=== PATIENT | male | born 1955 | race Caucasian/White ===

== ENCOUNTER → 2017-03-11 | Outpatient (CLI) | payer OTHER ==
--- NOTE | 2017-03-11 09:32 | REP ---
Chest two views HISTORY: Abnormal lungs Comparison: 03/21/2016 The lungs are hyperinflated. An increase in interstitial markings is present in the lungs. Bullae are present in the upper lobes. Scarring is present in the right upper and mid lung. The heart is normal in size. The pulmonary vasculature is normal in appearance. There is an old compression fracture of a mid thoracic vertebral body. IMPRESSION: COPD. Signed by Juan Maria MD 03/11/2017 09:23 A
== END ==
LOC: M SMT 08:59
PROVIDERS: ATTEND Internal Medicine Pulmonary Disease
DX: J44.9 Chronic obstructive pulmonary disease, unspecified (principal)

== ENCOUNTER → 2019-10-12 | Outpatient (REF) | payer OTHER ==
[2019-10-12 12:08] LABS: HEMATOCRIT 49.2 % (42.0-52.0); HEMOGLOBIN 16.4 g/dl (13.5-17.5); RED BLOOD COUNT 5.15 10^6/uL (4.30-6.10); WHITE BLOOD COUNT 6.8 10^3/uL (4.0-10.0)
[2019-10-12 12:09] LABS: BASO # 0.1 10^3/uL (0.0-0.2); BASO % 0.9 % (0.0-1.0); EOS # 0.2 10^3/uL (0.0-0.5); EOS % 2.6 % (0.0-3.0); LYMPH # 2.1 10^3/uL (1.5-5.0); LYMPH % 30.1 % (24.0-44.0); MEAN CORPUSCULAR HEMOGLOBIN 31.8 pg (27.0-33.0); MEAN CORPUSCULAR HGB CONC 33.3 g/dl (32.0-36.5); MEAN CORPUSCULAR VOLUME 95.5 fl (80.0-96.0); MONO # 0.8 10^3/uL (0.0-0.8); MONO % 11.5 % (0.0-5.0); NEUTROPHILS # 3.7 10^3/uL (1.5-8.5); NEUTROPHILS % 54.3 % (36.0-66.0); PLATELET COUNT, AUTOMATED 287 10^3/uL (150-450)
[2019-10-12 12:45] LABS: ALBUMIN 3.6 GM/DL (3.2-5.2); ALT/SGPT 28 U/L (12-78); BILIRUBIN,TOTAL 0.4 MG/DL (0.2-1.0); BLOOD UREA NITROGEN 10 MG/DL (7-18); CALCIUM LEVEL 9.1 MG/DL (8.8-10.2); CARBON DIOXIDE LEVEL 30 MEQ/L (21-32); CHLORIDE LEVEL 103 MEQ/L (98-107); CHOLESTEROL LEVEL 198 MG/DL (<200); CHOLESTEROL RISK RATIO 6.827 (<5); GLOMERULAR FILTRATION RATE > 60.0 (>49); GLUCOSE, FASTING 91 MG/DL (70-100); HDL CHOLESTEROL 29 MG/DL (>40); LDL CHOLESTEROL 145 MG/DL (<100); NON-HDL-C 169 MG/DL; POTASSIUM SERUM 3.9 MEQ/L (3.5-5.1); PTH INTACT 67.6 PG/ML (18.5-88.0); SODIUM LEVEL 138 MEQ/L (136-145); TOTAL 25(OH) VITAMIN D 21.7 NG/ML (30.0-100.0); TOTAL PROTEIN 7.6 GM/DL (6.4-8.2); TRIGLYCERIDES LEVEL 121 MG/DL (<150)
== END ==
LOC: M SFHCPLAZ 09:37
PROVIDERS: ATTEND Physician Assistant Medical
DX: J44.9 Chronic obstructive pulmonary disease, unspecified (principal); I10 Essential (primary) hypertension; E78.5 Hyperlipidemia, unspecified; E55.9 Vitamin D deficiency, unspecified; Z12.5 Encounter for screening for malignant neoplasm of prostate

== ENCOUNTER → 2019-11-09 | Outpatient (REF) | payer OTHER | LOC: M SFHCPLAZ 14:20 | PROVIDERS: ATTEND Physician Assistant Medical | DX: N41.0 Acute prostatitis (principal) ==

== ENCOUNTER → 2019-11-22 | Outpatient (CLI) | payer OTHER ==
--- NOTE | 2019-11-23 07:16 | REP ---
Clinical: Lung screening. History smoking. Comparison: None Technique: Axial low-dose noncontrast images from the thoracic inlet to the upper abdomen using lung screening technique. Findings: The lung gallardo demonstrate advanced COPD/emphysematous changes with presumed biapical and mild basilar scarring. Calcified granuloma in the right lower lobe is appreciated. There is a 15 mm soft tissue lesion in the right upper lobe (image 39). No pleural effusion/reaction or pneumothorax. Tracheobronchial tree is patent. Mediastinum demonstrates atherosclerotic changes of the coronary arteries without cardiomegaly. Impression: Lung-RADS category 4A. 15 mm soft tissue lesion in the right upper lobe. Recommendations include 3-month follow-up as well as PET/CT evaluation. Electronically Signed by Jesus Alberto Vásquez MD 11/23/2019 07:07 A
== END ==
LOC: M RAD 09:05
PROVIDERS: ATTEND Internal Medicine Pulmonary Disease
DX: Z12.2 Encounter for screening for malignant neoplasm of respiratory organs (principal); F17.218 Nicotine dependence, cigarettes, with other nicotine-induced disorders; R91.8 Other nonspecific abnormal finding of lung field

== ENCOUNTER → 2019-12-13 | Outpatient (CLI) | payer OTHER ==
--- NOTE | 2019-12-13 11:40 | REP ---
PET/CT: HISTORY: Solitary pulmonary nodule. COMPARISONS: Comparison low-dose chest CT November 22, 2019 shows a 12 mm right-sided pulmonary nodule. TECHNIQUE: 60 minutes following the intravenous injection of a 8.14 mCi dose of F-18 FDG, three-dimensional PET scintigraphy is acquired from the skull base to the proximal thighs. Triplanar noncontrast CT scanning is acquired through the same anatomic range for attenuation correction, and image registration with scan parameters optimized to minimize radiation exposure to the patient. PET scintigraphy and CT datasets were fused and displayed on a workstation with multiplanar and projection display capability. PET/CT FINDINGS: The posteriorly situated right upper lobe opacity seen on recent chest CT study shows no discernible FDG accumulation. Maximum standard uptake value is 0.62. No other abnormal hypermetabolic uptake is seen within the lung parenchyma. No abnormal mediastinal or hilar hypermetabolic uptake is appreciated. Head and neck soft tissues are unremarkable. In the abdomen and pelvis, normal adrenal uptake is seen. Normal hepatic and splenic uptake is observed. There is a fairly large area of markedly hypermetabolic uptake in the ascending colon. This is considerably higher than normal gastrointestinal mucosal uptake seen elsewhere on this patient's scan. Maximum standard uptake value in this presumed colonic lesion is 27.85. There is no evidence of regional hypermetabolic carlo uptake. No other abnormal abdominal or pelvic hypermetabolic uptake is seen. IMPRESSION: 1. No abnormal hypermetabolic uptake in the chest. No discernible uptake in the right upper lobe nodule. Recommend interval followup CT study. 2. Incidental note is made of a fairly large area of increased uptake in the ascending colon, much more avid than normal background gastrointestinal mucosal uptake. Rule out colonic neoplasm. Recommend colonoscopy and histologic correlation. Electronically Signed by Isaac Cobian MD 12/13/2019 01:59 P
== END ==
LOC: M PLARAD 08:22
PROVIDERS: ATTEND Internal Medicine Pulmonary Disease
DX: R91.1 Solitary pulmonary nodule (principal); R93.3 Abnormal findings on diagnostic imaging of other parts of digestive tract
CPT/HCPCS: 78815; A9552

== ENCOUNTER → 2020-01-21 | Outpatient (CLI) | payer OTHER ==
[~2020-01-21] MED LIST: ASPI81TA85 PO; ATOR80TA59 PO; FLOM0.4C39 PO; METO25TA4 PO; PROAAER10 INH; QVAR80AE8 INH
== END ==
LOC: M LABSMTC 07:59
PROVIDERS: ATTEND Anesthesiology
DX: Z11.59 Encounter for screening for other viral diseases (principal); Z03.818 Encounter for observation for suspected exposure to other biological agents ruled out
CPT/HCPCS: C9803; U0003

== ENCOUNTER 2020-01-24 09:15 | Day surgery (SDC) | payer OTHER ==
[~2020-01-24] VITALS: Ht 172.7 cm; Wt 94.1 kg
[~2020-01-24 09:15] MED LIST changes: +NS 1,000 ML IV ONE
[2020-01-24] MEDS ORDERED: propofoL 200 MG/20 ML VIAL As Ordered ONE ×2 (09:19→10:43)
[2020-01-24] MEDS ORDERED: LIDOCAINE 2% 100MG/5ML SDV (FOR ANES.) As Ordered ONE (09:39)
--- NOTE | 2020-01-24 11:20 | ROOR ---
Patient Name: Pedro Amezcua Procedure Date: 01/24/2020 10:24 AM Date of : 1955 Age: 64 Room: [facility] Gender: Male Note Status: Finalized Procedure: Colonoscopy Indications: Abnormal PET scan of the GI tract Providers: Gideon Zaragoza MD Referring MD: Bhumi LONG Requesting Provider: Medicines: Monitored Anesthesia Care Complications: No immediate complications. Procedure: Pre-Anesthesia Assessment: - Prior to the procedure, a History and Physical was performed, and patient medications and allergies were reviewed. The patient is competent. The risks and benefits of the procedure and the sedation options and risks were discussed with the patient. All questions were answered and informed consent was obtained. Patient identification and proposed procedure were verified by the physician, the nurse and the anesthesiologist in the procedure room. Mental Status Examination: alert and oriented. Airway Examination: normal oropharyngeal airway and neck mobility. Respiratory Examination: clear to auscultation. CV Examination: normal. Prophylactic Antibiotics: The patient does not require prophylactic antibiotics. Prior Anticoagulants: The patient has taken no previous anticoagulant or antiplatelet agents. ASA Grade Assessment: III - A patient with severe systemic disease. After reviewing the risks and benefits, the patient was deemed in satisfactory condition to undergo the procedure. The anesthesia plan was to use monitored anesthesia care (MAC). Immediately prior to administration of medications, the patient was re-assessed for adequacy to receive sedatives. The heart rate, respiratory rate, oxygen saturations, blood pressure, adequacy of pulmonary ventilation, and response to care were monitored throughout the procedure. The physical status of the patient was re-assessed after the procedure. The Colonoscope was introduced through the anus and advanced to the ascending colon to examine a mass. This was the intended extent. The colonoscopy was performed without difficulty. The patient tolerated the procedure well. The quality of the bowel preparation was good. The rectum was photographed. Scope insertion time was 5 minutes. Scope withdrawal time was 8 minutes. The total duration of the procedure was 16 minutes. Findings: The perianal and digital rectal examinations were normal. A frond-like/villous and infiltrative completely obstructing large mass was found in the ascending colon. The mass was circumferential. This was biopsied with a cold forceps for histology. Verification of patient identification for the specimen was done by the physician and nurse using the patient's name, date and medical record number. Estimated blood loss was minimal. A malignant-appearing, intrinsic severe stenosis was found in the ascending colon and was non-traversed. Non-bleeding external and internal hemorrhoids were found during retroflexion. The hemorrhoids were medium-sized. A large amount of stool was found from rectum to ascending colon, interfering with visualization. Lavage of the area was performed using a large amount of sterile water, resulting in incomplete clearance with fair visualization. Impression: - Likely malignant completely obstructing tumor in the ascending colon. Biopsied. - Stricture in the ascending colon. - Non-bleeding external and internal hemorrhoids. - Stool from rectum to ascending colon. Recommendation: - Patient has a contact number available for emergencies. The signs and symptoms of potential delayed complications were discussed with the patient. Return to normal activities tomorrow. Written discharge instructions were provided to the patient. - Soft diet. - Continue present medications. - Await pathology results. - Refer to a colo-rectal surgeon in 1 week. - Repeat colonoscopy in 6 months because the bowel preparation was poor and per protocol. - Telephone GI clinic for pathology results in 1 week. - Return to primary care physician. Gideon Zaragoza MD Gideon Zaragoza MD 01/24/2020 11:20:06 AM Electronically signed by Gideon Zaragoza MD Number of Addenda: 0 Note Initiated On: 01/24/2020 10:24 AM Estimated Blood Loss: Estimated blood loss was minimal.
[2020-01-24 11:30] VITALS: BP 125/58
== END 2020-01-24 12:46 | disposition home or self-care (01) ==
LOC: M OPP 09:15
PROVIDERS: ATTEND Internal Medicine Gastroenterology
DX: D49.0 Neoplasm of unspecified behavior of digestive system (principal); K56.691 Other complete intestinal obstruction; K56.699 Other intestinal obstruction unspecified as to partial versus complete obstruction; K64.8 Other hemorrhoids; R93.3 Abnormal findings on diagnostic imaging of other parts of digestive tract; F17.210 Nicotine dependence, cigarettes, uncomplicated; Z79.82 Long term (current) use of aspirin; Z79.899 Other long term (current) drug therapy; Z95.5 Presence of coronary angioplasty implant and graft

== ENCOUNTER → 2020-03-29 | Outpatient (CLI) | payer OTHER ==
[~2020-03-29] MED LIST changes: -ASPI81TA85 PO; +ASPI81TA86 PO; +EZET10TA21 PO; -NS 1,000 ML IV ONE; +ONDA8TAB10 PO; +PROC10TA4 PO; +TRIA0.5O EXT
--- NOTE | 2020-04-27 09:25 | REP ---
CT CHEST WITHOUT CONTRAST REASON FOR EXAM: Follow-up. COMPARISON: Low-dose screening CT examination of the lungs 11/22/2019. FINDINGS: No mediastinal or hilar adenopathy has developed. There are no pleural or pericardial effusions. Imaged upper abdomen and imaged osseous structures are within normal limits. Evaluation of the lung gallardo shows an unchanged 1.5 cm size nodule in the right upper lobe. There is biapical pleural parenchymal scarring status quo. There are emphysematous changes seen particularly in the upper lobe regions with parenchymal bullae and pleural blebs all stable. No new abnormal nodules, masses, or opacities have developed. IMPRESSION: Stable CT findings as described above. On 12/13/2019, the patient had CT PET, which showed no abnormal hypermetabolic activity in the chest. MTDD
== END ==
LOC: M RAD 12:15
PROVIDERS: ATTEND Internal Medicine Pulmonary Disease
DX: R91.1 Solitary pulmonary nodule (principal); J43.9 Emphysema, unspecified; J98.4 Other disorders of lung

== ENCOUNTER → 2020-04-26 | Outpatient (CLI) | payer OTHER ==
[~2020-04-26] MED LIST changes: +LIDOCAINE 1% MDV 20ML VIAL As Ordered ONE; +MIDAZOLAM INJ 2MG/2ML VIAL (J2250 PER 1MG) As Ordered ONE; +ONDANSETRON 4MG/2ML VIAL As Ordered ONE; +ONDANSETRON 4MG/2ML VIAL IV ONE; +ceFAZolin 1GM VIAL (J0690 PER 500MG) As Ordered ONE; +diphenhydrAMINE 50MG/ML VIAL (J1200) As Ordered ONE; +fentaNYL 100 MCG/2 ML INJECTION (J3010) As Ordered ONE
--- NOTE | 2020-04-26 09:46 | IRHP ---
[facility] IR Pre-Procedure H & P General Date of Service: Apr 26, 2020 Procedure: Same Day Surgery Interval History and Physical I have seen the patient and reviewed last H & P performed within 30 days. There is no significant interval change. History of Present Illness Chief Complaint The patient is a 64-year-old male admitted with a reason for visit of Colon Ca. PRE-PROCEDURE DIAGNOSIS:colon ca HEART: normal rate. LUNGS: normal breathing at rest. ASA Classification ASA Classification: III-Severe systemic dis. Mallampati Score: II NPO: Yes Problems with prior sedation: No Obstructive Sleep Apnea: No Plan moderate sedation Allergies Coded Allergies: No Known Allergies (Verified , 01/18/20) Home Medications Scheduled Aspirin (Aspir 81), 81 MG PO DAILY, (Reported) Atorvastatin Calcium (Atorvastatin Calcium), 80 MG PO QHS, (Reported) Beclomethasone Dipropionate (Qvar Redihaler), 80 MCG INH BID, (Reported) Ezetimibe (Ezetimibe), 10 MG PO DAILY, (Reported) Metoprolol Tartrate (Metoprolol Tartrate), 25 MG PO BID, (Reported) Tamsulosin HCl (Flomax), 0.4 MG PO DAILY, (Reported) Scheduled PRN Albuterol Sulfate (Proair Hfa), 2 PUFF INH PRN PRN for SOB/WHEEZING, (Reported) LYNN BRYAN MD Apr 26, 2020 09:46
--- NOTE | 2020-04-26 14:18 | POST-OPPD ---
Postoperative Procedure Note Date Of Procedure: Apr 26, 2020 Time Of Procedure: 14:17 IR Ultrasound and fluoroscopy-guided port placement. IR Ultrasound of the neck. IR Moderate sedation. Clinical information: Lymphoma Physician: Dr. Cash. Procedure: The patient was advised of the benefits, risks, and alternatives of the procedure and informed consent was obtained. A time-out was performed with verification of the patient's name, MRN, site of procedure and type of procedure to be performed. The patient was positioned in the supine position on the angiographic table. The site was prepped and draped in the usual sterile fashion. Moderate sedation was performed by the physician including the presence of an independent trained observer who assisted and monitored the patient's level of consciousness and physiologic status. Following the administration of fentanyl and Versed , the physician spent 45 minutes of continuous face to face time with the patient. Ultrasound of the neck reveals a patent and compressible right internal jugular vein. A unix analyst radiograph reveals scarring in the right lung apex. The neck and anterior chest wall were anesthetized with lidocaine. The right internal jugular vein was accessed using a microintroducer needle under ultrasound guidance, via a lateral approach. An 018 wire was advanced into the superior vena cava, the needle was removed and a microsheath was placed. An Amplatz wire was then passed into the inferior vena cava. An incision at the internal jugular vein access site and anterior chest wall were made using a scalpel. An incision was made at the anterior chest wall. A small pocket was created using a combination of blunt and sharp dissection. A tunneling device was then used to pass the catheter from the pocket to the neck puncture site. An 8- [employer] Smart power port was then positioned in the pocket. The catheter was then measured and cut. The introducer sheath was exchanged for a peel-away sheath. The catheter was passed through the peel-away sheath into the internal jugular vein and the peel-away sheath was removed. The port tip was positioned at the cavoatrial junction. The port was then accessed with a Carey needle. The port flushes and aspirates well. The puncture site in the neck was closed. The chest wall incision was then closed with 2-0 Vicryl and 4-0 Monocryl. Glue and Steri- Strips were applied. A sterile dressing was then applied. The patient tolerated the procedure well and was returned to the PRU in stable condition. Estimated blood loss: <5 ml. Complications: None. Conclusion: 1. Successful placement of an 8-[employer] Smart power port via the right internal jugular vein. The port is ready for immediate use. 2. Patient to follow up in IR clinic in 2 weeks. Thank you for this referral. LYNN CASH MD Apr 26, 2020 14:18
[2020-04-26 14:45] VITALS: BP 132/80
== END ==
LOC: M IRPRO 09:12
PROVIDERS: ATTEND Radiology Diagnostic Radiology
DX: C18.9 Malignant neoplasm of colon, unspecified (principal); Z79.82 Long term (current) use of aspirin; Z79.899 Other long term (current) drug therapy
CPT/HCPCS: 36561; 99152; 99153; C1769; C1788; C1894; J0690; J1200; J1642; J1644; J2250; J2405; J3010

== ENCOUNTER → 2020-05-30 | Outpatient (REF) | payer OTHER ==
[~2020-05-30] MED LIST changes: -LIDOCAINE 1% MDV 20ML VIAL As Ordered ONE; -MIDAZOLAM INJ 2MG/2ML VIAL (J2250 PER 1MG) As Ordered ONE; -ONDANSETRON 4MG/2ML VIAL As Ordered ONE; -ONDANSETRON 4MG/2ML VIAL IV ONE; -ceFAZolin 1GM VIAL (J0690 PER 500MG) As Ordered ONE; -diphenhydrAMINE 50MG/ML VIAL (J1200) As Ordered ONE; -fentaNYL 100 MCG/2 ML INJECTION (J3010) As Ordered ONE
[2020-05-30 18:17] LABS: ALBUMIN 3.5 GM/DL (3.2-5.2); ALT/SGPT 37 U/L (12-78); BILIRUBIN,TOTAL 0.3 MG/DL (0.2-1.0); BLOOD UREA NITROGEN 8 MG/DL (7-18); CALCIUM LEVEL 9.2 MG/DL (8.8-10.2); CARBON DIOXIDE LEVEL 32 MEQ/L (21-32); CHLORIDE LEVEL 104 MEQ/L (98-107); CREATININE FOR GFR 1.04 MG/DL (0.70-1.30); GLOMERULAR FILTRATION RATE > 60.0 (>49); GLUCOSE, FASTING 104 MG/DL (70-100); NT-PRO BNP 43 PG/ML (<125); POTASSIUM SERUM 4.2 MEQ/L (3.5-5.1); SODIUM LEVEL 140 MEQ/L (136-145); TOTAL PROTEIN 7.3 GM/DL (6.4-8.2)
[2020-05-30 18:25] LABS: PTH INTACT 61.6 PG/ML (18.5-88.0); TOTAL 25(OH) VITAMIN D 18.7 NG/ML (30.0-100.0)
== END ==
LOC: M SFHCPLAZ 15:15
PROVIDERS: ATTEND Physician Assistant Medical
DX: Z12.5 Encounter for screening for malignant neoplasm of prostate (principal); E55.9 Vitamin D deficiency, unspecified; I25.10 Atherosclerotic heart disease of native coronary artery without angina pectoris

== ENCOUNTER → 2020-10-02 | Outpatient (CLI) | payer OTHER ==
[~2020-10-02] MED LIST changes: +ASPI1CHW3 PO
--- NOTE | 2020-10-02 10:38 | REP ---
INDICATION: SOLITARY PULMONARY NODULE COMPARISON: 03/29/2020, 11/22/2019 TECHNIQUE: Axial noncontrast images from the thoracic inlet to the upper abdomen with coronal and sagittal reformations. This CT examination was performed using the following dose reduction techniques: Automated exposure control, adjustment of mA and/or kv according to the patient's size, and use of iterative reconstruction technique. FINDINGS: Advanced emphysematous changes with scattered bronchiectasis and scarring are again noted and essentially unchanged. The single 15 mm noncalcified nodule in the right upper lobe remains stable. No new area of consolidation, suspicious nodule or mass lesion. No pleural effusion. No pneumothorax. No obvious adenopathy. Mediastinum demonstrates stable atherosclerotic changes to the thoracic aorta and coronary arteries without aortic aneurysm or cardiomegaly. No pericardial effusion. Surrounding musculoskeletal structures without acute osseous abnormality. [id number]-[id number]-[id number] identified with tip in the SVC. IMPRESSION: Solitary pulmonary nodule in the right upper lobe remains stable compared through 11/22/2019 and was previously deemed non metabolic on PET-CT. <Electronically signed by Jesus Alberto Vásquez > 10/02/20 [id number]
== END ==
LOC: M RAD 09:26
PROVIDERS: ATTEND Internal Medicine Pulmonary Disease
DX: R91.1 Solitary pulmonary nodule (principal)

== ENCOUNTER → 2020-11-20 | Outpatient (POV) | payer OTHER ==
[~2020-11-20] VITALS: Ht 172.7 cm; Wt 93.2 kg
[2020-11-20 10:32] VITALS: BP 129/84
--- NOTE | 2020-11-23 08:45 | IRCOV ---
[facility] IR Consult Office Visit IR Consult Office Visit DATE: Nov 20, 2020 REASON FOR CONSULTATION/CHIEF COMPLAINT: Port removal. HISTORY OF PRESENT ILLNESS: 65-year-old male with colon cancer diagnosed in January 2020 underwent Laparoscopic right hemicolectomy with ileocolonic anastomosis in March 2020 followed by FOLFOX chemotherapy started in April 2020. He had a chest port placed for chemotherapy in April. Port worked well. Patient decided to discontinue chemotherapy after 1 cycle due to significant side effects. Patient would like his port removed and wants to forego any further therapy. ALLERGIES: Please see below. HOME MEDICATIONS: Please see below. PAST MEDICAL HISTORY: COPD Coronary artery disease 4 x [place] 5 cardiac stents Hypertension PAST SURGICAL HISTORY: Right hemicolectomy with ileocolonic anastomosis FAMILY HISTORY: Noncontributory. SOCIAL HISTORY: Smoker since age 21. 1.5 packs per day. Denies alcohol or drugs. REVIEW OF SYSTEMS: Otherwise negative. PHYSICAL EXAMINATION: VITAL SIGNS: Please see below. GENERAL APPEARANCE: Appears well. Comfortable at rest. HEENT: No scleral icterus. RESPIRATORY: Normal breathing at rest. CARDIOVASCULAR: Normal rate. ABDOMEN: Soft nontender. EXTREMITIES: No edema. NEUROLOGICAL: Alert and oriented. PSYCHIATRIC: Appropriate to circumstance. LABORATORY DATA: 11/16/2020 hemoglobin 17.5 hematocrit 51.9 WBC 6.6 platelets 242. Sodium 139 potassium 3.7 BUN 11 creatinine 0.94 GFR greater than 60. INR 0.85 Imaging: I personally reviewed the CT chest 10/02/20. Right-sided chest port in place. ASSESSMENT/PLAN: 65-year-old male has decided to forego any further chemotherapy due to intolerable side effects. Patient would like his port removed. We discuss ed the risks and benefits of the procedure and patient would like to proceed. We'll schedule the patient for chest port removal. I spent 30 minutes in consultation with the patient. Thank you for this referral. Cc Dr. Jane Chaves Allergies Coded Allergies: No Known Allergies (Verified , 01/18/20) Home Medications Scheduled Aspirin (Aspirin), 1 TAB PO DAILY, (Reported) Atorvastatin Calcium (Atorvastatin Calcium), 80 MG PO QHS, (Reported) Ezetimibe (Ezetimibe), 10 MG PO DAILY, (Reported) Metoprolol Tartrate (Metoprolol Tartrate), 25 MG PO BID, (Reported) Tamsulosin HCl (Flomax), 0.4 MG PO DAILY, (Reported) Triamcinolone Acetonide (Triamcinolone Acetonide), 0.5 SMALL EXT BID Scheduled PRN Albuterol Sulfate (Proair Hfa), 2 PUFF INH PRN PRN for SOB/WHEEZING, (Reported) Ondansetron HCl (Ondansetron HCl), 8 MG PO Q12H PRN for NAUSEA Prochlorperazine Maleate (Prochlorperazine Maleate), 10 MG PO Q6H PRN for NAUSEA VS, I&O, 24H, Fishbone Vital Signs/I&O Vital Signs Date Time Temp Pulse Resp B/P (MAP) Pulse Ox O2 Delivery O2 Flow Rate FiO2 11/20/20 10:32 97.3 86 20 129/84 (99) 97 Room Air LYNN BRYAN MD Nov 23, 2020 08:45
== END ==
LOC: M IRPOV 09:56
PROVIDERS: ATTEND Radiology Diagnostic Radiology
DX: C18.9 Malignant neoplasm of colon, unspecified (principal); F17.210 Nicotine dependence, cigarettes, uncomplicated; I10 Essential (primary) hypertension; I25.10 Atherosclerotic heart disease of native coronary artery without angina pectoris; I25.2 Old myocardial infarction; J44.9 Chronic obstructive pulmonary disease, unspecified; Z92.21 Personal history of antineoplastic chemotherapy; Z95.1 Presence of aortocoronary bypass graft

== ENCOUNTER → 2020-11-28 | Outpatient (CLI) | payer OTHER ==
[~2020-11-28] MED LIST changes: +LIDOCAINE 1% MDV 20ML VIAL As Ordered ONE; +MIDAZOLAM INJ 2MG/2ML VIAL (J2250 PER 1MG) As Ordered ONE; +PROMETHAZINE INJ 25 MG/ML VIAL (J2550) As Ordered ONE; +ceFAZolin 2 GM/D5W 50 ML IV BAG (J0690 PER 500MG) As Ordered ONE; +diphenhydrAMINE 50MG/ML VIAL (J1200) As Ordered ONE; +fentaNYL 100 MCG/2 ML INJECTION (J3010) As Ordered ONE
[2020-11-28 13:00] VITALS: BP 134/63
--- NOTE | 2020-11-29 11:46 | IRPON ---
IR Postoperative Note Date Of Procedure: Nov 28, 2020 Time Of Procedure: 16:00 IR Postoperative Note IR Port Removal / Explant. IR Moderate sedation. Clinical Information:Colon cancer. No further therapy planned. Patient would like port removed. Physician: Dr. Cash Procedure: The patient was advised of the benefits, risks, and alternatives of the procedure and informed consent was obtained. A time out was performed with verification of the patient's name, MRN, site of procedure, and type of procedure to be performed. The patient was positioned in the supine position on the angiographic table. The site was prepped and draped in the usual sterile fashion. Moderate sedation was performed by the physician including the presence of an independent trained RN who assisted in monitoring the patient's level of consciousness and physiological status. Following the administration of fentanyl and Versed the physician spent 30 minutes of continuous osmj-sp-[id number] time with the patient. A satellite installer radiograph reveals a right sided port. The soft tissues overlying the port were anesthetized with lidocaine. An incision was made over the port using a 15 blade scalpel in the location of the prior incision. The catheter was then freed with blunt dissection and extracted. Pressure was applied to obtain hemostasis. The port was then freed with blunt dissection and subsequently removed. There were no signs of infection. After hemostasis was achieved, the incision was closed with interrupted deep 3-0 Vicryl sutures and subcuticular Monocryl suture followed by glue and steri-strips. The site was covered with a sterile dressing. The patient tolerated the procedure well and was returned to the PRU in stable condition. EBL:Less than 5 mL Complications:None. Conclusions: 1. Successful explant of a right-sided port. 2. No signs of infection. Thank you for this referral LYNN CASH MD Nov 29, 2020 11:46
== END ==
LOC: M IRPRO 08:50
PROVIDERS: ATTEND Radiology Diagnostic Radiology
DX: Z45.2 Encounter for adjustment and management of vascular access device (principal); C18.9 Malignant neoplasm of colon, unspecified

== ENCOUNTER → 2020-12-07 | Outpatient (CLI) | payer OTHER ==
[~2020-12-07] MED LIST changes: +GASTROGRAFIN SOLUTION 30ML (Q9963) As Ordered ONE; +ISOVUE-370 76% 100ML VIAL As Ordered ONE; -LIDOCAINE 1% MDV 20ML VIAL As Ordered ONE; -MIDAZOLAM INJ 2MG/2ML VIAL (J2250 PER 1MG) As Ordered ONE; -PROMETHAZINE INJ 25 MG/ML VIAL (J2550) As Ordered ONE; -ceFAZolin 2 GM/D5W 50 ML IV BAG (J0690 PER 500MG) As Ordered ONE; -diphenhydrAMINE 50MG/ML VIAL (J1200) As Ordered ONE; -fentaNYL 100 MCG/2 ML INJECTION (J3010) As Ordered ONE
--- NOTE | 2020-12-07 13:04 | REP ---
INDICATION: COLON CANCER. COMPARISON: None TECHNIQUE: Standard helical technique after the intravenous administration of 100 cc Isovue 370 and oral bowel preparatory contrast administration FINDINGS: The lung bases are unchanged from prior chest CT of 10/02/2020 The liver, gallbladder, spleen, pancreas, adrenal glands, and kidneys are within normal limits. The abdominal aorta and para-aortic regions are within normal limits. There is no mass or adenopathy. There is no free fluid or free air. The bowel loops and the mesenteries are within normal limits. There is sigmoid colon diverticulosis. Right lower quadrant postoperative changes are noted. There is prostatomegaly. There is a 5 mm sized nodule in the left para vesicular adipose. Bone window technique throughout the examination shows the osseous structures to be within normal limits. IMPRESSION: There is no evidence of acute disease. Findings as described above. <Electronically signed by Kyle Law > 12/07/20 1300
== END ==
LOC: M RAD 10:47
PROVIDERS: ATTEND Internal Medicine Medical Oncology
DX: C18.9 Malignant neoplasm of colon, unspecified (principal); N40.0 Benign prostatic hyperplasia without lower urinary tract symptoms
CPT/HCPCS: 74177; Q9963; Q9967

== ENCOUNTER → 2020-12-18 | Outpatient (POV) | payer OTHER ==
[~2020-12-18] VITALS: Ht 172.7 cm; Wt 93.1 kg
[~2020-12-18] MED LIST changes: -GASTROGRAFIN SOLUTION 30ML (Q9963) As Ordered ONE; -ISOVUE-370 76% 100ML VIAL As Ordered ONE
[2020-12-18 09:56] VITALS: BP 140/70
--- NOTE | 2020-12-19 10:49 | IRPN ---
[facility] IR Progress Note IR Progress Note DATE: December 18, 2020 FOLLOW-UP: Patient is status post port removal. Patient states he is doing well without fevers or chills or pain. ON EXAMINATION: Port removal site appears to be healing well. Steri-Strips are still in place. No redness, swelling or discharge IMPRESSION: Doing well status post port removal. No further follow-up scheduled unless initiated by patient and/or referring provider. Thank you for this referral Allergies Coded Allergies: No Known Allergies (Verified , 01/18/20) VS,Fishbone, I+O VS, Fishbone, I+O Vital Signs Date Time Temp Pulse Resp B/P (MAP) Pulse Ox O2 Delivery O2 Flow Rate FiO2 12/18/20 09:56 98.4 87 24 140/70 (93) 96 Room Air LYNN BRYAN MD December 19, 2020 10:49
== END ==
LOC: M IRPOV 09:03
PROVIDERS: ATTEND Radiology Diagnostic Radiology
DX: Z45.2 Encounter for adjustment and management of vascular access device (principal)

== ENCOUNTER → 2021-01-29 | Outpatient (CLI) | payer OTHER ==
[2021-01-29 14:14] LABS: ALBUMIN 3.8 GM/DL (3.2-5.2); ALT/SGPT 41 U/L (12-78); BILIRUBIN,TOTAL 0.5 MG/DL (0.2-1.0); BLOOD UREA NITROGEN 13 MG/DL (7-18); CALCIUM LEVEL 9.2 MG/DL (8.8-10.2); CARBON DIOXIDE LEVEL 33 MEQ/L (21-32); CHLORIDE LEVEL 104 MEQ/L (98-107); CREATININE FOR GFR 0.93 MG/DL (0.70-1.30); GLOMERULAR FILTRATION RATE > 60.0 (>49); GLUCOSE, FASTING 99 MG/DL (70-100); NT-PRO BNP 31 PG/ML (<125); POTASSIUM SERUM 4.4 MEQ/L (3.5-5.1); SODIUM LEVEL 138 MEQ/L (136-145); TOTAL 25(OH) VITAMIN D 10.9 NG/ML (30.0-100.0); TOTAL PROTEIN 7.4 GM/DL (6.4-8.2)
== END ==
LOC: M PLALAB 10:48
PROVIDERS: ATTEND Physician Assistant Medical
DX: N41.0 Acute prostatitis (principal); I25.5 Ischemic cardiomyopathy; E55.9 Vitamin D deficiency, unspecified; I25.10 Atherosclerotic heart disease of native coronary artery without angina pectoris

== ENCOUNTER → 2021-03-21 | Outpatient (CLI) | payer MEDICARE, OTHER ==
[~2021-03-21] MED LIST changes: +CHLO125TA; +FURO40TA2; +METO1TAB32; +NITR0.4S14; +POTA1TAB14
[2021-03-21 12:18] LABS: CHOLESTEROL RISK RATIO 5.312 (<5)
== END ==
LOC: M PLALAB 08:44
PROVIDERS: ATTEND Physician Assistant Medical
DX: E78.5 Hyperlipidemia, unspecified (principal)

== ENCOUNTER → 2021-04-04 | Outpatient (CLI) | payer MEDICARE, OTHER ==
[~2021-04-04] MED LIST changes: -CHLO125TA; +CHLO125TA PO; +D31000TA2 PO; -METO1TAB32; +METO1TAB32 PO; +VENTAER INH
[2021-04-04 13:54] LABS: CALCIUM LEVEL 9.4 MG/DL (8.8-10.2)
[2021-04-04 14:06] LABS: PTH INTACT 101.4 PG/ML (18.5-88.0)
== END ==
LOC: M PLALAB 11:20
PROVIDERS: ATTEND Physician Assistant Medical
DX: E55.9 Vitamin D deficiency, unspecified (principal)
CPT/HCPCS: 36415; 82306; 82310; 83970; G0463

== ENCOUNTER → 2021-04-27 | Outpatient (CLI) | payer OTHER | LOC: M LABSMTC 09:18 | PROVIDERS: ATTEND Anesthesiology | DX: Z01.812 Encounter for preprocedural laboratory examination (principal); Z20.822 Contact with and (suspected) exposure to COVID-19 ==

== ENCOUNTER 2021-05-02 07:40 | Day surgery (SDC) | payer MEDICARE, OTHER ==
[~2021-05-02] VITALS: Ht 172.7 cm; Wt 93.6 kg
[~2021-05-02 07:40] MED LIST changes: +NS 1,000 ML IV ONE
[2021-05-02] MEDS ORDERED: propofoL 200 MG/20 ML VIAL As Ordered ONE (09:38)
--- NOTE | 2021-05-02 09:52 | ROOR ---
Patient Name: Pedro Amezcua Procedure Date: 05/02/2021 9:09 AM Date of : 1955 Age: 65 [facility]: [facility] Gender: Male Note Status: Finalized Procedure: Colonoscopy Indications: High risk colon cancer surveillance: Personal history of colon cancer Providers: Gideon Zaragoza MD Referring MD: Bhumi LONG Requesting Provider: Medicines: Monitored Anesthesia Care Complications: No immediate complications. Procedure: Pre-Anesthesia Assessment: - Prior to the procedure, a History and Physical was performed, and patient medications and allergies were reviewed. The patient is competent. The risks and benefits of the procedure and the sedation options and risks were discussed with the patient. All questions were answered and informed consent was obtained. Patient identification and proposed procedure were verified by the physician, the nurse and the anesthesiologist in the procedure room. Mental Status Examination: alert and oriented. Airway Examination: normal oropharyngeal airway and neck mobility. Respiratory Examination: clear to auscultation. CV Examination: normal. Prophylactic Antibiotics: The patient does not require prophylactic antibiotics. Prior Anticoagulants: The patient has taken no previous anticoagulant or antiplatelet agents. ASA Grade Assessment: II - A patient with mild systemic disease. After reviewing the risks and benefits, the patient was deemed in satisfactory condition to undergo the procedure. The anesthesia plan was to use monitored anesthesia care (MAC). Immediately prior to administration of medications, the patient was re-assessed for adequacy to receive sedatives. The heart rate, respiratory rate, oxygen saturations, blood pressure, adequacy of pulmonary ventilation, and response to care were monitored throughout the procedure. The physical status of the patient was re-assessed after the procedure. The Colonoscope was introduced through the anus and advanced to the ileocolonic anastomosis. The colonoscopy was performed without difficulty. The patient tolerated the procedure well. The quality of the bowel preparation was fair. The terminal ileum, the appendiceal orifice and the rectum were photographed. Scope insertion time was 2 minutes. Scope withdrawal time was 9 minutes. The total duration of the procedure was 12 minutes. Findings: The perianal and digital rectal examinations were normal. The senait-terminal ileum appeared normal. Four sessile polyps were found in the rectum and ascending colon. The polyps were 3 to 5 mm in size. These polyps were removed with a cold snare. Resection and retrieval were complete. Verification of patient identification for the specimen was done by the physician and nurse using the patient's name, date and medical record number. Estimated blood loss was minimal. Non-bleeding external and internal hemorrhoids were found during retroflexion. The hemorrhoids were medium-sized. A large amount of semi-liquid stool was found from transverse colon to cecum, interfering with visualization. Lavage of the area was performed using a large amount of sterile water, resulting in clearance with fair visualization. Impression: - Preparation of the colon was fair. - The examined portion of the ileum was normal. - Four 3 to 5 mm polyps in the rectum and in the ascending colon, removed with a cold snare. Resected and retrieved. - Non-bleeding external and internal hemorrhoids. - Stool from transverse colon to cecum. Recommendation: - Patient has a contact number available for emergencies. The signs and symptoms of potential delayed complications were discussed with the patient. Return to normal activities tomorrow. Written discharge instructions were provided to the patient. - High fiber diet. - Continue present medications. - Use fiber, for example Citrucel, Fibercon, Konsyl or Metamucil. - Await pathology results. - Repeat colonoscopy in 1 year because the bowel preparation was suboptimal and for surveillance based on pathology results. - Telephone GI clinic for pathology results in 2 weeks. - Return to GI clinic in 1 year. - Return to primary care physician. Procedure Code(s): --- Professional --- 16778, Colonoscopy, flexible; with removal of tumor(s), polyp(s), or other lesion(s) by snare technique Diagnosis Code(s): --- Professional --- Z85.038, Personal history of other malignant neoplasm of large intestine K64.8, Other hemorrhoids K62.1, Rectal polyp K63.5, Polyp of colon CPT copyright 2019 [employer]. All rights reserved. The codes documented in this report are preliminary and upon beet topper review may be revised to meet current compliance requirements. Gideon Zaragoza MD Gideon Zaragoza MD 05/02/2021 9:51:56 AM Electronically signed by Gideon Zaragoza MD Number of Addenda: 0 Note Initiated On: 05/02/2021 9:09 AM Estimated Blood Loss: Estimated blood loss was minimal.
[2021-05-02 10:05] VITALS: BP 131/70
== END 2021-05-02 10:18 | disposition home or self-care (01) ==
LOC: M OPP 07:40
PROVIDERS: ATTEND Internal Medicine Gastroenterology
DX: Z12.11 Encounter for screening for malignant neoplasm of colon (principal); Z85.038 Personal history of other malignant neoplasm of large intestine; K63.5 Polyp of colon; K62.1 Rectal polyp; K64.8 Other hemorrhoids; Z79.82 Long term (current) use of aspirin; Z79.899 Other long term (current) drug therapy; F17.210 Nicotine dependence, cigarettes, uncomplicated; Z95.5 Presence of coronary angioplasty implant and graft

== ENCOUNTER → 2021-05-08 | Outpatient (CLI) | payer MEDICARE, OTHER ==
[~2021-05-08] MED LIST changes: -NS 1,000 ML IV ONE
--- NOTE | 2021-05-08 10:52 | REP ---
INDICATION: SOLITARY PULMONARY NODULE COMPARISON: Multiple the latest 10/02/2020 also without contrast TECHNIQUE: Standard helical technique without contrast FINDINGS: The mediastinum and pulmonary esther are unchanged. There is no evidence of a mass or adenopathy. There are no pleural or pericardial effusions. The imaged upper abdomen and imaged osseous structures are unchanged. Evaluation of the lung gallardo shows rather marked biapical pleuroparenchymal scarring status quo. There is rather marked lung field hyperexpansion in conjunction with parenchymal bulla and pleural blebs. There is a 1.5 cm sized right upper lobe nodule which is unchanged. No new abnormal nodules, masses, or opacities have developed. IMPRESSION: Stable CT examination of the chest with findings as described above. Due to the patient's history of colon cancer follow-up should be based on clinical assessment. <Electronically signed by Kyle Law > 05/08/21 1041
== END ==
LOC: M PLAIMG 09:39
PROVIDERS: ATTEND Internal Medicine Pulmonary Disease
DX: R91.1 Solitary pulmonary nodule (principal); Z80.0 Family history of malignant neoplasm of digestive organs

== ENCOUNTER → 2021-11-20 | Outpatient (CLI) | payer MEDICARE, OTHER ==
[~2021-11-20] MED LIST changes: +ASMA1AER3 INH; +AZIT-12 PO; +BENZ-18 PO; -D31000TA2 PO; +MUCI600T31 PO; +NICO14PA TD; +ONDA-84 PO; -ONDA8TAB10 PO; +PANT40TA29 PO; +PRED10TA2 PO; -PROC10TA4 PO; +PROC10TA5 PO; +PULM90IN INH; +VITA100093 PO
== END ==
LOC: M RAD 09:05
PROVIDERS: ATTEND Internal Medicine Pulmonary Disease
DX: J93.9 Pneumothorax, unspecified (principal); J43.1 Panlobular emphysema; R91.1 Solitary pulmonary nodule

== ENCOUNTER → 2022-11-12 | Outpatient (CLI) | payer MEDICARE, OTHER ==
[~2022-11-12] MED LIST changes: -ASMA1AER3 INH; +ASPI-655 PO; -ASPI1CHW3 PO; +MOME13HF5 INH
== END ==
LOC: M RAD 06:14
PROVIDERS: ATTEND Internal Medicine Pulmonary Disease
DX: Z12.2 Encounter for screening for malignant neoplasm of respiratory organs (principal); F17.218 Nicotine dependence, cigarettes, with other nicotine-induced disorders; R91.1 Solitary pulmonary nodule; J84.10 Pulmonary fibrosis, unspecified

== ENCOUNTER → 2023-02-10 | Outpatient (CLI) | payer MEDICARE, OTHER ==
[~2023-02-10] MED LIST changes: +POTA-298; -POTA1TAB14
[2023-02-10 14:29] LABS: BASO # 0.1 10^3/uL (0.0-0.2); BASO % 0.7 % (0.0-1.0); EOS # 0.1 10^3/uL (0.0-0.5); EOS % 0.7 % (0.0-3.0); HEMATOCRIT 51.8 % (42.0-52.0); HEMOGLOBIN 17.1 g/dl (13.5-17.5); LYMPH # 1.9 10^3/uL (1.5-5.0); LYMPH % 26.9 % (24.0-44.0); MEAN CORPUSCULAR HEMOGLOBIN 32.1 pg (27.0-33.0); MEAN CORPUSCULAR VOLUME 97.2 fl (80.0-96.0); MONO # 0.7 10^3/uL (0.0-0.8); MONO % 9.7 % (2.0-8.0); NEUTROPHILS # 4.3 10^3/uL (1.5-8.5); NEUTROPHILS % 61.2 % (36.0-66.0); PLATELET COUNT, AUTOMATED 223 10^3/uL (150-450); RED BLOOD COUNT 5.33 10^6/uL (4.30-6.10); WHITE BLOOD COUNT 7.1 10^3/uL (4.0-10.0)
[2023-02-10 14:47] LABS: ALBUMIN 3.8 G/DL (3.2-5.2); ALKALINE PHOSPHATASE 109 U/L (46-116); ALT/SGPT 24 U/L (7.0-40); AST/SGOT 20 U/L (<34); BILIRUBIN,TOTAL 0.6 MG/DL (0.3-1.2); BLOOD UREA NITROGEN 10 MG/DL (9-23); CALCIUM LEVEL 10.4 MG/DL (8.3-10.6); CARBON DIOXIDE LEVEL 34 MMOL/L (20-31); CHLORIDE LEVEL 98 MMOL/L (98-107); CPK CREATINE PHOSPHOKINASE 399 U/L (46-171); CREATININE FOR GFR 0.76 MG/DL (0.70-1.30); GLOMERULAR FILTRATION RATE > 60.0 (>49); GLUCOSE, FASTING 83 MG/DL (74-106); POTASSIUM SERUM 3.5 MMOL/L (3.5-5.1); PTH INTACT 35.8 PG/ML (18.5-88.0); SODIUM LEVEL 135 MMOL/L (136-145); TOTAL PROTEIN 6.9 G/DL (5.7-8.2)
[2023-02-10 14:49] LABS: TOTAL 25(OH) VITAMIN D 39.5 NG/ML (20.0-100.0)
== END ==
LOC: M PLAIMG 09:17 → M PLALAB 09:17
PROVIDERS: ATTEND Physician Assistant Medical
DX: M50.321 Other cervical disc degeneration at C4-C5 level (principal); M50.322 Other cervical disc degeneration at C5-C6 level; J44.1 Chronic obstructive pulmonary disease with (acute) exacerbation; G62.9 Polyneuropathy, unspecified; I11.0 Hypertensive heart disease with heart failure; K21.9 Gastro-esophageal reflux disease without esophagitis; E78.5 Hyperlipidemia, unspecified; E55.9 Vitamin D deficiency, unspecified; N40.0 Benign prostatic hyperplasia without lower urinary tract symptoms; I50.32 Chronic diastolic (congestive) heart failure
CPT/HCPCS: 36415; 71046; 72052; 80053; 82306; 82550; 83880; 83970; 85025; G0103

== ENCOUNTER → 2023-03-30 | Outpatient (CLI) | payer MEDICARE, OTHER | LOC: M PLAIMG 08:11 | PROVIDERS: ATTEND Physician Assistant Medical | DX: G62.9 Polyneuropathy, unspecified (principal); M50.21 Other cervical disc displacement, high cervical region; M50.221 Other cervical disc displacement at C4-C5 level; M47.812 Spondylosis without myelopathy or radiculopathy, cervical region; M50.222 Other cervical disc displacement at C5-C6 level; M50.223 Other cervical disc displacement at C6-C7 level ==

== ENCOUNTER → 2023-12-15 | Outpatient (CLI) | payer MEDICARE, OTHER | LOC: M RAD 09:17 | PROVIDERS: ATTEND Internal Medicine Pulmonary Disease | DX: Z12.2 Encounter for screening for malignant neoplasm of respiratory organs (principal); F17.218 Nicotine dependence, cigarettes, with other nicotine-induced disorders; R91.1 Solitary pulmonary nodule; R91.8 Other nonspecific abnormal finding of lung field; J47.9 Bronchiectasis, uncomplicated; I70.0 Atherosclerosis of aorta; I25.10 Atherosclerotic heart disease of native coronary artery without angina pectoris; J44.9 Chronic obstructive pulmonary disease, unspecified ==

== ENCOUNTER 2023-12-18 10:54 | Inpatient (IN) | payer MEDICARE ==
[~2023-12-18] VITALS: Ht 172.7 cm; Wt 85.5 kg
[~2023-12-18 10:54] MED LIST changes: +CEFU50TA PO
[2023-12-18] MEDS ORDERED: MOM 30ML SUSPENSION UDC PO PRN (11:20)
[2023-12-18] MEDS ORDERED: ACETAMINOPHEN TAB 650MG DOSE (2X325MG) PO PRN (11:20)
[2023-12-18 12:00] VITALS: BP 139/81; TEMP 97.7; O2SAT 93
[2023-12-18 12:34] LABS: ABG BASE EXCESS 7.8 (-2.0-2.0); ABG HCO3 33.6 MMOL/L (22.0-26.0); ABG O2 SATURATION 92.7 % (95.0-99.0); ABG PARTIAL PRESSURE CO2 50.3 mmHg (35.0-45.0); ABG PARTIAL PRESSURE O2 60.9 mmHg (75.0-100.0); ABG STANDARD HCO3 31.5 MMOL/L. (22.0-26.0); ABG TOTAL CO2 35.2 MMOL/L (23.0-31.0); ABG pH (ARTERIAL) 7.443 UNITS (7.350-7.450)
[2023-12-18] MEDS: IPRATROPIUM 0.5MG/ALBUTEROL 2.5MG INH SOL UD 3ML (DUONEB) NEB SCH (13:15)
[2023-12-18] MEDS: DOCUSATE SODIUM 100MG CAPSULE PO SCH (13:16)
[2023-12-18 13:35] LABS: BASO % 0.4 % (0.0-1.0); EOS # 0.2 10^3/uL (0.0-0.5); EOS % 2.3 % (0.0-3.0); HEMATOCRIT 44.8 % (42.0-52.0); HEMOGLOBIN 15.5 g/dl (13.5-17.5); LYMPH # 1.3 10^3/uL (1.5-5.0); LYMPH % 13.3 % (24.0-44.0); MEAN CORPUSCULAR HEMOGLOBIN 33.3 pg (27.0-33.0); MEAN CORPUSCULAR HGB CONC 34.6 g/dl (32.0-36.5); MEAN CORPUSCULAR VOLUME 96.1 fl (80.0-96.0); MONO # 1.2 10^3/uL (0.0-0.8); NEUTROPHILS % 71.4 % (36.0-66.0); PLATELET COUNT, AUTOMATED 254 10^3/uL (150-450); RED BLOOD COUNT 4.66 10^6/uL (4.30-6.10); WHITE BLOOD COUNT 9.8 10^3/uL (4.0-10.0)
[2023-12-18 13:55] LABS: INR 1.09; PROTHROMBIN TIME 13.8 SECONDS (12.5-14.5)
[2023-12-18 14:00] VITALS: BP 139/79; TEMP 97.9; O2SAT 91
[2023-12-18 14:04] LABS: ALBUMIN 2.9 G/DL (3.2-5.2); ALKALINE PHOSPHATASE 114 U/L (46-116); ALT/SGPT 38 U/L (7.0-40); AST/SGOT 45 U/L (<34); BILIRUBIN,TOTAL 0.8 MG/DL (0.3-1.2); BLOOD UREA NITROGEN 13 MG/DL (9-23); CALCIUM LEVEL 9.2 MG/DL (8.3-10.6); CARBON DIOXIDE LEVEL 37 MMOL/L (20-31); CHLORIDE LEVEL 101 MMOL/L (98-107); CREATININE FOR GFR 0.66 MG/DL (0.70-1.30); GLOMERULAR FILTRATION RATE > 60.0 (>49); GLUCOSE, FASTING 107 MG/DL (74-106); POTASSIUM SERUM 3.2 MMOL/L (3.5-5.1); SODIUM LEVEL 141 MMOL/L (136-145); TOTAL PROTEIN 6.4 G/DL (5.7-8.2)
[2023-12-18 14:15] LABS: PROCALCITONIN 0.08 ng/ml
[2023-12-18] MEDS: LevoFLOXacin IV 750 MG in IV 1 EA IV SCH (14:17)
[2023-12-18] MEDS ORDERED: HOME MED LIST COMPLETE! XX SCH ×2 (15:35→18:45)
[2023-12-18 15:38] LABS: MAGNESIUM LEVEL 2.2 MG/DL (1.8-2.4)
[2023-12-18] MEDS: POTASSIUM CHLORIDE 10MEQ SR TABLET PO ONE (16:07)
[2023-12-18] MEDS: NICOTINE 14 MG/24 HR TRANSDERMAL TD SCH (16:10)
[2023-12-18] MEDS ORDERED: PRED10TA2 PO (18:40)
[2023-12-18] MEDS ORDERED: BUDE180INH INH (18:40)
[2023-12-18] MEDS: ATORVASTATIN 20 MG TAB PO SCH (20:05)
[2023-12-18] MEDS: METOPROLOL SUCC *XL* 25MG TAB (TopROL *XL*) PO SCH (20:05)
[2023-12-18 22:00] VITALS: BP 137/78; TEMP 97.5; O2SAT 93
[2023-12-18 23:00] VITALS: O2SAT 86
[2023-12-18 23:04] VITALS: O2SAT 90
[2023-12-19] MEDS: IPRATROPIUM 0.5MG/ALBUTEROL 2.5MG INH SOL UD 3ML (DUONEB) NEB PRN (04:25)
[2023-12-19 06:00] VITALS: BP 133/79; TEMP 97.7; O2SAT 90
[2023-12-19 07:01] LABS: HEMATOCRIT 43.1 % (42.0-52.0); HEMOGLOBIN 14.6 g/dl (13.5-17.5); MEAN CORPUSCULAR HEMOGLOBIN 32.7 pg (27.0-33.0); MEAN CORPUSCULAR HGB CONC 33.9 g/dl (32.0-36.5); MEAN CORPUSCULAR VOLUME 96.4 fl (80.0-96.0); PLATELET COUNT, AUTOMATED 258 10^3/uL (150-450); RED BLOOD COUNT 4.47 10^6/uL (4.30-6.10); WHITE BLOOD COUNT 8.5 10^3/uL (4.0-10.0)
[2023-12-19 07:23] LABS: BLOOD UREA NITROGEN 12 MG/DL (9-23); CALCIUM LEVEL 9.1 MG/DL (8.3-10.6); CARBON DIOXIDE LEVEL 34 MMOL/L (20-31); CHLORIDE LEVEL 105 MMOL/L (98-107); CREATININE FOR GFR 0.58 MG/DL (0.70-1.30); GLOMERULAR FILTRATION RATE > 60.0 (>49); GLUCOSE, FASTING 129 MG/DL (74-106); POTASSIUM SERUM 3.6 MMOL/L (3.5-5.1); SODIUM LEVEL 141 MMOL/L (136-145)
[2023-12-19] MEDS: ASPIRIN 81MG CHEW TABLET PO SCH (08:16)
[2023-12-19] MEDS: VITAMIN D 1,000 INTERNATIONAL UNITS TABLET PO SCH (08:16)
[2023-12-19] MEDS: TAMSULOSIN 0.4 MG CAP PO SCH (08:17)
[2023-12-19] MEDS: methylPREDNISolone 40MG 1ML VIAL IV SCH (11:24)
[2023-12-19] MEDS: CHLORTHALIDONE 25 MG TAB PO SCH (11:24)
[2023-12-19] MEDS: BUDESONIDE 0.5 MG/2 ML INHALATION SUSPENSION NEB SCH (11:40)
[2023-12-19] MEDS: LevoFLOXacin 750 MG TABLET PO SCH (12:27)
[2023-12-19] MEDS ORDERED: ISOVUE-370 76% 100ML VIAL As Ordered ONE (12:45)
[2023-12-19 14:00] VITALS: BP 141/80; TEMP 97.3; O2SAT 93
[2023-12-19] MEDS: ENOXAPARIN 40MG/0.4ML SYRINGE (J1650 PER 10MG) SC SCH (20:05)
[2023-12-19 22:00] VITALS: BP 147/91; TEMP 97.7; O2SAT 92
[2023-12-20 06:00] VITALS: BP 151/66; TEMP 97.3; O2SAT 94
[2023-12-20 06:28] LABS: HEMATOCRIT 42.6 % (42.0-52.0); HEMOGLOBIN 14.5 g/dl (13.5-17.5); PLATELET COUNT, AUTOMATED 282 10^3/uL (150-450); RED BLOOD COUNT 4.39 10^6/uL (4.30-6.10); WHITE BLOOD COUNT 8.7 10^3/uL (4.0-10.0)
[2023-12-20 06:48] LABS: BLOOD UREA NITROGEN 14 MG/DL (9-23); CARBON DIOXIDE LEVEL 37 MMOL/L (20-31); CHLORIDE LEVEL 100 MMOL/L (98-107); CREATININE FOR GFR 0.65 MG/DL (0.70-1.30); GLOMERULAR FILTRATION RATE > 60.0 (>49); GLUCOSE, FASTING 109 MG/DL (74-106); POTASSIUM SERUM 3.5 MMOL/L (3.5-5.1); SODIUM LEVEL 139 MMOL/L (136-145)
[2023-12-20 14:00] VITALS: BP 134/84; TEMP 97.3; O2SAT 90
[2023-12-20 19:52] VITALS: BP 138/82; TEMP 97.5; O2SAT 93
[2023-12-21 06:00] VITALS: BP 134/73; TEMP 97.5; O2SAT 90
[2023-12-21 07:06] LABS: HEMATOCRIT 42.8 % (42.0-52.0); HEMOGLOBIN 14.6 g/dl (13.5-17.5); MEAN CORPUSCULAR HEMOGLOBIN 32.4 pg (27.0-33.0); MEAN CORPUSCULAR HGB CONC 34.1 g/dl (32.0-36.5); MEAN CORPUSCULAR VOLUME 94.9 fl (80.0-96.0); PLATELET COUNT, AUTOMATED 283 10^3/uL (150-450); RED BLOOD COUNT 4.51 10^6/uL (4.30-6.10); WHITE BLOOD COUNT 8.3 10^3/uL (4.0-10.0)
[2023-12-21 07:38] LABS: BLOOD UREA NITROGEN 12 MG/DL (9-23); CALCIUM LEVEL 9.1 MG/DL (8.3-10.6); CARBON DIOXIDE LEVEL 38 MMOL/L (20-31); CHLORIDE LEVEL 99 MMOL/L (98-107); CREATININE FOR GFR 0.66 MG/DL (0.70-1.30); GLOMERULAR FILTRATION RATE > 60.0 (>49); GLUCOSE, FASTING 112 MG/DL (74-106); POTASSIUM SERUM 3.3 MMOL/L (3.5-5.1); SODIUM LEVEL 139 MMOL/L (136-145)
[2023-12-21] MEDS: POTASSIUM CHLORIDE 10MEQ SR TABLET PO ONE (08:54)
[2023-12-21] MEDS: guaiFENesin 200 MG TAB PO SCH (11:02)
[2023-12-21 16:00] VITALS: BP 125/73; TEMP 97.3; O2SAT 90
[2023-12-21] MEDS ORDERED: ALBU8.5H INH (16:22)
[2023-12-21] MEDS ORDERED: HOME MED LIST COMPLETE! XX SCH (16:25)
[2023-12-21 16:53] LABS: BODY FLUID CULTURE Not indicated. (.); LEGIONELLA ANTIGEN URINE Negative (Negative); ORGANISM ID Not indicated. (.); SPECIMEN SOURCE Urine (.); URINE STREP PNEUMONIAE ANTIGEN Negative (Negative)
[2023-12-21 20:00] VITALS: BP 138/83; TEMP 97.5; O2SAT 92
[2023-12-21 21:26] VITALS: BP 138/83
[2023-12-22 05:47] VITALS: BP 123/71; TEMP 97.9; O2SAT 90
[2023-12-22 07:21] LABS: BLOOD UREA NITROGEN 16 MG/DL (9-23); CALCIUM LEVEL 9.6 MG/DL (8.3-10.6); CARBON DIOXIDE LEVEL 36 MMOL/L (20-31); CHLORIDE LEVEL 96 MMOL/L (98-107); CREATININE FOR GFR 0.74 MG/DL (0.70-1.30); GLOMERULAR FILTRATION RATE > 60.0 (>49); GLUCOSE, FASTING 109 MG/DL (74-106); MAGNESIUM LEVEL 1.9 MG/DL (1.8-2.4); POTASSIUM SERUM 3.3 MMOL/L (3.5-5.1); SODIUM LEVEL 137 MMOL/L (136-145)
[2023-12-22] MEDS: predniSONE 20 MG TAB PO SCH (08:49)
[2023-12-22] MEDS: POTASSIUM CHLORIDE 10MEQ SR TABLET PO ONE (08:52)
[2023-12-22] MEDS ORDERED: NICO14PA TD (10:53)
[2023-12-22] MEDS ORDERED: PRED10TA2 PO (10:53)
[2023-12-22] MEDS ORDERED: LEVO1TAB40 PO (10:53)
== END 2023-12-22 13:02 | disposition home or self-care (01) | DRG 194 ==
LOC: M MSPAV 11:20 → PREOBSVTOIN 11:26
PROVIDERS: ADMIT Student in an Organized Health Care Education/Training Program; ATTEND Student in an Organized Health Care Education/Training Program
DX: J18.9 Pneumonia, unspecified organism (principal); J44.0 Chronic obstructive pulmonary disease with (acute) lower respiratory infection; J96.11 Chronic respiratory failure with hypoxia; E87.4 Mixed disorder of acid-base balance; J44.1 Chronic obstructive pulmonary disease with (acute) exacerbation; J96.12 Chronic respiratory failure with hypercapnia; I25.10 Atherosclerotic heart disease of native coronary artery without angina pectoris; I25.2 Old myocardial infarction; I12.9 Hypertensive chronic kidney disease with stage 1 through stage 4 chronic kidney disease, or unspecified chronic kidney disease; F17.210 Nicotine dependence, cigarettes, uncomplicated; E78.5 Hyperlipidemia, unspecified; G47.33 Obstructive sleep apnea (adult) (pediatric); R91.1 Solitary pulmonary nodule; E87.6 Hypokalemia; R31.9 Hematuria, unspecified; N18.30 Chronic kidney disease, stage 3 unspecified; N40.0 Benign prostatic hyperplasia without lower urinary tract symptoms; E55.9 Vitamin D deficiency, unspecified; K76.0 Fatty (change of) liver, not elsewhere classified; Z95.5 Presence of coronary angioplasty implant and graft; Z85.038 Personal history of other malignant neoplasm of large intestine; Z90.49 Acquired absence of other specified parts of digestive tract; Z99.81 Dependence on supplemental oxygen; Z79.82 Long term (current) use of aspirin; Z79.52 Long term (current) use of systemic steroids; Z79.899 Other long term (current) drug therapy; Z11.52 Encounter for screening for COVID-19

== ENCOUNTER → 2024-02-12 | Outpatient (CLI) | payer MEDICARE ==
[~2024-02-12] MED LIST changes: +ALBU8.5H INH; +BUDE180INH INH; +LEVO1TAB40 PO
[2024-02-12 14:03] LABS: BASO # 0.1 10^3/uL (0.0-0.2); BASO % 0.5 % (0.0-1.0); EOS # 0.2 10^3/uL (0.0-0.5); EOS % 1.6 % (0.0-3.0); HEMATOCRIT 50.3 % (42.0-52.0); HEMOGLOBIN 17.2 g/dl (13.5-17.5); LYMPH # 1.3 10^3/uL (1.5-5.0); LYMPH % 10.7 % (24.0-44.0); MEAN CORPUSCULAR HGB CONC 34.2 g/dl (32.0-36.5); MEAN CORPUSCULAR VOLUME 96.4 fl (80.0-96.0); MONO # 0.9 10^3/uL (0.0-0.8); MONO % 7.2 % (2.0-8.0); NEUTROPHILS # 9.7 10^3/uL (1.5-8.5); NEUTROPHILS % 78.6 % (36.0-66.0); PLATELET COUNT, AUTOMATED 234 10^3/uL (150-450); RED BLOOD COUNT 5.22 10^6/uL (4.30-6.10); WHITE BLOOD COUNT 12.3 10^3/uL (4.0-10.0)
[2024-02-12 14:28] LABS: ALBUMIN 3.7 G/DL (3.2-5.2); ALKALINE PHOSPHATASE 108 U/L (46-116); ALT/SGPT 28 U/L (7.0-40); AST/SGOT 13 U/L (<34); BILIRUBIN,TOTAL 0.5 MG/DL (0.3-1.2); BLOOD UREA NITROGEN 11 MG/DL (9-23); CALCIUM LEVEL 9.3 MG/DL (8.3-10.6); CARBON DIOXIDE LEVEL 39 MMOL/L (20-31); CHLORIDE LEVEL 96 MMOL/L (98-107); GLOMERULAR FILTRATION RATE > 60.0 (>49); GLUCOSE, FASTING 161 MG/DL (74-106); POTASSIUM SERUM 3.2 MMOL/L (3.5-5.1); SODIUM LEVEL 137 MMOL/L (136-145); TOTAL PROTEIN 6.4 G/DL (5.7-8.2)
== END ==
LOC: M PLALAB 11:26
PROVIDERS: ATTEND Physician Assistant Medical
DX: J18.9 Pneumonia, unspecified organism (principal); J44.0 Chronic obstructive pulmonary disease with (acute) lower respiratory infection

== ENCOUNTER → 2024-03-15 | Outpatient (CLI) | payer MEDICARE | LOC: M RAD 13:53 | PROVIDERS: ATTEND Internal Medicine Pulmonary Disease | DX: R91.8 Other nonspecific abnormal finding of lung field (principal); J47.9 Bronchiectasis, uncomplicated; J43.9 Emphysema, unspecified; J98.11 Atelectasis; J84.10 Pulmonary fibrosis, unspecified; I25.10 Atherosclerotic heart disease of native coronary artery without angina pectoris ==

== ENCOUNTER → 2024-06-01 | Outpatient (CLI) | payer MEDICARE ==
[2024-06-01 13:09] LABS: BASO # 0.1 10^3/uL (0.0-0.2); BASO % 0.9 % (0.0-1.0); EOS # 0.2 10^3/uL (0.0-0.5); EOS % 2.8 % (0.0-3.0); HEMATOCRIT 55.1 % (42.0-52.0); HEMOGLOBIN 18.7 g/dl (13.5-17.5); LYMPH # 1.6 10^3/uL (1.5-5.0); LYMPH % 23.5 % (24.0-44.0); MEAN CORPUSCULAR HEMOGLOBIN 32.9 pg (27.0-33.0); MEAN CORPUSCULAR HGB CONC 33.9 g/dl (32.0-36.5); MONO # 0.8 10^3/uL (0.0-0.8); MONO % 12.4 % (2.0-8.0); NEUTROPHILS % 59.8 % (36.0-66.0); PLATELET COUNT, AUTOMATED 230 10^3/uL (150-450); RED BLOOD COUNT 5.68 10^6/uL (4.30-6.10); WHITE BLOOD COUNT 6.7 10^3/uL (4.0-10.0)
[2024-06-01 13:42] LABS: ALBUMIN 3.5 G/DL (3.2-5.2); ALKALINE PHOSPHATASE 113 U/L (40-129); ALT/SGPT 19 U/L (7.0-40); AST/SGOT 16 U/L (<34); BILIRUBIN,TOTAL 0.5 MG/DL (0.3-1.2); BLOOD UREA NITROGEN 13 MG/DL (9-23); CARBON DIOXIDE LEVEL 37 MMOL/L (20-31); CHLORIDE LEVEL 102 MMOL/L (98-107); CREATININE FOR GFR 0.91 MG/DL (0.70-1.30); GLOMERULAR FILTRATION RATE > 60.0 (>49); GLUCOSE, FASTING 89 MG/DL (74-106); POTASSIUM SERUM 4.3 MMOL/L (3.5-5.1); SODIUM LEVEL 142 MMOL/L (136-145); TOTAL PROTEIN 7.1 G/DL (5.7-8.2)
[2024-06-01 13:46] LABS: PSA SCREENING 1.68 NG/ML (< 4.00)
[2024-06-01 13:51] LABS: TOTAL 25(OH) VITAMIN D 42.3 NG/ML (20.0-100.0)
== END ==
LOC: M PLALAB 10:12
PROVIDERS: ATTEND Physician Assistant Medical
DX: Z00.00 Encounter for general adult medical examination without abnormal findings (principal); J18.9 Pneumonia, unspecified organism; K76.0 Fatty (change of) liver, not elsewhere classified; I10 Essential (primary) hypertension; E78.5 Hyperlipidemia, unspecified; J44.9 Chronic obstructive pulmonary disease, unspecified; E55.9 Vitamin D deficiency, unspecified; Z12.5 Encounter for screening for malignant neoplasm of prostate; J43.9 Emphysema, unspecified; M47.9 Spondylosis, unspecified
CPT/HCPCS: 36415; 71046; 80053; 82107; 82306; 83970; 85025; G0103

== ENCOUNTER 2024-06-06 19:00 | Emergency (ER) | payer MEDICARE ==
[~2024-06-06] VITALS: Ht 172.7 cm; Wt 87.9 kg
[~2024-06-06 19:00] MED LIST changes: +BUDE180A2 INH; -BUDE180INH INH; +BUDE90AE INH; -PULM90IN INH
[2024-06-06 19:36] LABS: BASO % 0.5 % (0.0-1.0); EOS % 0.3 % (0.0-3.0); HEMATOCRIT 51.3 % (42.0-52.0); HEMOGLOBIN 17.2 g/dl (13.5-17.5); LYMPH % 10.9 % (24.0-44.0); MEAN CORPUSCULAR HGB CONC 33.5 g/dl (32.0-36.5); MEAN CORPUSCULAR VOLUME 98.3 fl (80.0-96.0); MONO # 0.5 10^3/uL (0.0-0.8); MONO % 5.1 % (2.0-8.0); NEUTROPHILS # 7.3 10^3/uL (1.5-8.5); NEUTROPHILS % 82.7 % (36.0-66.0); PLATELET COUNT, AUTOMATED 214 10^3/uL (150-450); RED BLOOD COUNT 5.22 10^6/uL (4.30-6.10); WHITE BLOOD COUNT 8.8 10^3/uL (4.0-10.0)
[2024-06-06] MEDS ORDERED: IPRATROPIUM 0.5MG/ALBUTEROL 2.5MG INH SOL UD 3ML (DUONEB) As Ordered ONE (20:40)
[2024-06-06] MEDS: IPRATROPIUM 0.5MG/ALBUTEROL 2.5MG INH SOL UD 3ML (DUONEB) NEB ONE ×2 (20:42)
[2024-06-06 20:53] LABS: LIPASE 25 U/L (12-53)
[2024-06-06 21:00] LABS: ALBUMIN 3.2 G/DL (3.2-5.2); ALKALINE PHOSPHATASE 109 U/L (40-129); ALT/SGPT 17 U/L (7.0-40); AST/SGOT 11 U/L (<34); BILIRUBIN,DIRECT 0.2 MG/DL (<0.4); BILIRUBIN,TOTAL 0.5 MG/DL (0.3-1.2); BLOOD UREA NITROGEN 13 MG/DL (9-23); CALCIUM LEVEL 9.5 MG/DL (8.3-10.6); CARBON DIOXIDE LEVEL 35 MMOL/L (20-31); CHLORIDE LEVEL 101 MMOL/L (98-107); CPK CREATINE PHOSPHOKINASE 116 U/L (46-171); CREATININE FOR GFR 0.75 MG/DL (0.70-1.30); GLOMERULAR FILTRATION RATE > 60.0 (>49); GLUCOSE, FASTING 129 MG/DL (74-106); MB/CK RELATIVE INDEX 0.86 (< OR =4); POTASSIUM SERUM 4.2 MMOL/L (3.5-5.1); SODIUM LEVEL 140 MMOL/L (136-145); TOTAL PROTEIN 6.6 G/DL (5.7-8.2)
[2024-06-06] MEDS: MORPHINE 4 MG/ML 1ML VIAL IV ONE (21:48)
[2024-06-06 21:51] LABS: CK-MB VALUE MASS 1.9 NG/ML (<3.6)
[2024-06-06 21:52] LABS: MB/CK RELATIVE INDEX 1.58 (< OR =4)
[2024-06-06] MEDS ORDERED: MORPHINE 2 MG/ML 1ML VIAL IV PRN (22:25)
[2024-06-06 23:36] LABS: CK-MB VALUE MASS 14.4 NG/ML (<3.6)
[2024-06-06 23:51] LABS: MB/CK RELATIVE INDEX 5.64 (< OR =4)
[2024-06-06] MEDS ORDERED: HEPARIN SOD (PORCINE) 5000UNITS/ML 1ML VIAL/SYRINGE IV PRN (23:55)
[2024-06-07] MEDS: HEPARIN DRIP 25,000 UNITS in IV 1 EA IV SCH (00:27)
[2024-06-07] MEDS: HEPARIN SOD (PORCINE) 5000UNITS/ML 1ML VIAL/SYRINGE IV ONE (00:28)
[2024-06-07 00:57] VITALS: BP 130/65; TEMP 98.8; O2SAT 97
== END 2024-06-07 01:05 | disposition short-term general hospital (02) ==
LOC: M ED 19:00 → EDBD 19:00 → M ED 06-07 01:05
DX: I21.4 Non-ST elevation (NSTEMI) myocardial infarction (principal); I25.10 Atherosclerotic heart disease of native coronary artery without angina pectoris; I25.2 Old myocardial infarction; I10 Essential (primary) hypertension; E78.5 Hyperlipidemia, unspecified; N40.0 Benign prostatic hyperplasia without lower urinary tract symptoms; J44.9 Chronic obstructive pulmonary disease, unspecified; E55.9 Vitamin D deficiency, unspecified; Z95.5 Presence of coronary angioplasty implant and graft; F17.200 Nicotine dependence, unspecified, uncomplicated; Z79.82 Long term (current) use of aspirin; Z79.899 Other long term (current) drug therapy

== ENCOUNTER → 2024-11-29 | Outpatient (REF) | payer MEDICARE ==
[~2024-11-29] MED LIST changes: -FLOM0.4C39 PO; +TAMS-18 PO
[2024-11-29 18:42] LABS: BASO % 0.6 % (0.0-1.0); EOS % 0.8 % (0.0-3.0); HEMATOCRIT 52.5 % (42.0-52.0); HEMOGLOBIN 17.1 g/dl (13.5-17.5); LYMPH # 0.7 10^3/uL (1.5-5.0); MEAN CORPUSCULAR HEMOGLOBIN 31.7 pg (27.0-33.0); MEAN CORPUSCULAR HGB CONC 32.6 g/dl (32.0-36.5); MEAN CORPUSCULAR VOLUME 97.4 fl (80.0-96.0); MONO # 0.4 10^3/uL (0.0-0.8); MONO % 11.4 % (2.0-8.0); NEUTROPHILS # 2.4 10^3/uL (1.5-8.5); NEUTROPHILS % 66.4 % (36.0-66.0); PLATELET COUNT, AUTOMATED 157 10^3/uL (150-450); RED BLOOD COUNT 5.39 10^6/uL (4.30-6.10); WHITE BLOOD COUNT 3.6 10^3/uL (4.0-10.0)
[2024-11-29 19:03] LABS: PSA SCREENING 1.82 NG/ML (< 4.00)
[2024-11-29 19:07] LABS: TOTAL 25(OH) VITAMIN D 36.1 NG/ML (20.0-100.0)
[2024-11-29 19:08] LABS: ALBUMIN 3.4 G/DL (3.2-5.2); ALKALINE PHOSPHATASE 132 U/L (40-129); ALT/SGPT 23 U/L (7.0-40); AST/SGOT 18 U/L (<34); BILIRUBIN,TOTAL 0.4 MG/DL (0.3-1.2); BLOOD UREA NITROGEN 7 MG/DL (9-23); CALCIUM LEVEL 9.1 MG/DL (8.3-10.6); CARBON DIOXIDE LEVEL 34 MMOL/L (20-31); CHLORIDE LEVEL 99 MMOL/L (98-107); CREATININE FOR GFR 0.73 MG/DL (0.70-1.30); GLOMERULAR FILTRATION RATE > 90.0 (>49); GLUCOSE, FASTING 110 MG/DL (74-106); POTASSIUM SERUM 4.1 MMOL/L (3.5-5.1); PTH INTACT 58.1 PG/ML (18.5-88.0); SODIUM LEVEL 141 MMOL/L (136-145); TOTAL PROTEIN 6.8 G/DL (5.7-8.2)
== END ==
LOC: M LABDRAWP 17:35
PROVIDERS: ATTEND Physician Assistant Medical
DX: E55.9 Vitamin D deficiency, unspecified (principal); I11.0 Hypertensive heart disease with heart failure; J44.9 Chronic obstructive pulmonary disease, unspecified; K76.0 Fatty (change of) liver, not elsewhere classified; E78.5 Hyperlipidemia, unspecified; Z12.5 Encounter for screening for malignant neoplasm of prostate; E78.49 Other hyperlipidemia; I25.10 Atherosclerotic heart disease of native coronary artery without angina pectoris; I25.83 Coronary atherosclerosis due to lipid rich plaque; I10 Essential (primary) hypertension
CPT/HCPCS: 80053; 80061; 82306; 83880; 83970; 85025; G0103

== ENCOUNTER → 2024-11-29 | Outpatient (REF) | payer MEDICARE ==
[2024-11-29 19:07] LABS: ALBUMIN 3.4 G/DL (3.2-5.2); ALKALINE PHOSPHATASE 133 U/L (40-129); ALT/SGPT 22 U/L (7.0-40); AST/SGOT 17 U/L (<34); BILIRUBIN,TOTAL 0.4 MG/DL (0.3-1.2); BLOOD UREA NITROGEN 7 MG/DL (9-23); CALCIUM LEVEL 9.1 MG/DL (8.3-10.6); CARBON DIOXIDE LEVEL 35 MMOL/L (20-31); CHLORIDE LEVEL 100 MMOL/L (98-107); CHOLESTEROL LEVEL 167 MG/DL (<200); CHOLESTEROL RISK RATIO 5.17 (<5); CREATININE FOR GFR 0.72 MG/DL (0.70-1.30); GLOMERULAR FILTRATION RATE > 90.0 (>49); GLUCOSE, FASTING 111 MG/DL (74-106); HDL CHOLESTEROL 32.3 MG/DL (>40); LDL CHOLESTEROL 113.5 MG/DL (<100); NON-HDL-C 134.7 MG/DL; POTASSIUM SERUM 4.1 MMOL/L (3.5-5.1); SODIUM LEVEL 140 MMOL/L (136-145); TOTAL PROTEIN 6.8 G/DL (5.7-8.2); TRIGLYCERIDES LEVEL 106 MG/DL (<150)
== END ==
LOC: M LABDRAWP 17:34
PROVIDERS: ATTEND Internal Medicine Cardiovascular Disease
DX: E78.49 Other hyperlipidemia (principal); I25.10 Atherosclerotic heart disease of native coronary artery without angina pectoris; I25.83 Coronary atherosclerosis due to lipid rich plaque; I10 Essential (primary) hypertension

== ENCOUNTER 2024-12-17 20:36 | Inpatient (IN) | payer MEDICARE ==
[~2024-12-17] VITALS: Ht 172.7 cm; Wt 87.7 kg
[2024-12-17] MEDS: LEVALBUTEROL 1.25 MG 0.5ML CONCENTRATE NEB NEB ONE ×3 (20:54→23:32)
[2024-12-17 21:08] LABS: VENOUS BASE EXCESS 7.4 (-2.0-2.0); VENOUS HCO3 37.4 MMOL/L (23.0-27.0); VENOUS O2 SATURATION 61.8 % (60.0-80.0); VENOUS PARTIAL PRESSURE CO2 77.3 mmHg (38.0-50.0); VENOUS PARTIAL PRESSURE O2 32.4 mmHg (30.0-50.0); VENOUS PH 7.303 UNITS (7.330-7.430); VENOUS STANDARD HCO3 30.1 MMOL/L; VENOUS TOTAL CO2 39.8 MMOL/L (24.0-28.0)
[2024-12-17 21:12] LABS: BASO % 0.3 % (0.0-1.0); EOS # 0.3 10^3/uL (0.0-0.5); EOS % 2.6 % (0.0-3.0); HEMOGLOBIN 15.6 g/dl (13.5-17.5); LYMPH % 9.4 % (24.0-44.0); MEAN CORPUSCULAR HEMOGLOBIN 31.5 pg (27.0-33.0); MEAN CORPUSCULAR HGB CONC 32.5 g/dl (32.0-36.5); MONO # 0.9 10^3/uL (0.0-0.8); MONO % 8.7 % (2.0-8.0); NEUTROPHILS # 8.1 10^3/uL (1.5-8.5); NEUTROPHILS % 78.5 % (36.0-66.0); PLATELET COUNT, AUTOMATED 186 10^3/uL (150-450); RED BLOOD COUNT 4.95 10^6/uL (4.30-6.10); WHITE BLOOD COUNT 10.3 10^3/uL (4.0-10.0)
[2024-12-17] MEDS: methylPREDNISolone 125MG 2ML VIAL IV ONE (21:12)
[2024-12-17] MEDS ORDERED: ISOVUE-370 76% 100ML VIAL As Ordered ONE (21:18)
[2024-12-17 21:35] LABS: CK-MB VALUE MASS 1.6 NG/ML (<3.6)
[2024-12-17 21:36] LABS: CPK CREATINE PHOSPHOKINASE 135 U/L (46-171); MB/CK RELATIVE INDEX 1.18 (< OR =4)
[2024-12-17 21:37] LABS: ALKALINE PHOSPHATASE 107 U/L (40-129); ALT/SGPT 23 U/L (7.0-40); AST/SGOT 19 U/L (<34); BILIRUBIN,DIRECT 0.4 MG/DL (<0.4); BILIRUBIN,TOTAL 0.9 MG/DL (0.3-1.2); BLOOD UREA NITROGEN 10 MG/DL (9-23); CALCIUM LEVEL 8.8 MG/DL (8.3-10.6); CARBON DIOXIDE LEVEL 40 MMOL/L (20-31); CHLORIDE LEVEL 97 MMOL/L (98-107); CREATININE FOR GFR 0.67 MG/DL (0.70-1.30); GLOMERULAR FILTRATION RATE > 90.0 (>49); GLUCOSE, FASTING 142 MG/DL (74-106); POTASSIUM SERUM 3.9 MMOL/L (3.5-5.1); SODIUM LEVEL 141 MMOL/L (136-145); TOTAL PROTEIN 6.7 G/DL (5.7-8.2)
[2024-12-17 21:38] LABS: THYROID STIMULATING HORMONE 4.146 uIU/ML (0.55-4.78); THYROXINE (T4) 4.9 UG/DL (4.5-10.9)
[2024-12-17] MEDS: cefTRIAXone SOD 1 GM in DEXTROSE 5% (D5W) ADV/MINI-BAG 50 ML IV ONE (23:25)
[2024-12-17] MEDS: AZITHROMYCIN 250MG TABLET PO ONE (23:30)
[2024-12-18] MEDS ORDERED: FLUT1BLS8 INH (00:17)
[2024-12-18] MEDS ORDERED: NITR0.4S14 SL (00:18)
[2024-12-18] MEDS ORDERED: MAALOX 30 ML SUSP *UDC PO PRN (00:20)
[2024-12-18] MEDS ORDERED: MOM 30ML SUSPENSION UDC PO PRN (00:20)
[2024-12-18] MEDS ORDERED: HOME MED LIST COMPLETE! XX SCH (00:20)
[2024-12-18] MEDS: FUROSEMIDE 100MG/10ML VIAL IV ONE (00:56)
[2024-12-18] MEDS: IPRATROPIUM 0.5MG/ALBUTEROL 2.5MG INH SOL UD 3ML INH SCH (01:13)
[2024-12-18 01:14] VITALS: O2SAT 94
[2024-12-18 01:27] LABS: KETONE, URINE AUTO RFX TRACE mg/dL (NEGATIVE); LEUKOCYTE ESTERASE UR AUTO RFX NEGATIVE (NEGATIVE); MUCUS, URINE RFX SMALL (NEGATIVE); NITRITE, URINE AUTO RFX NEGATIVE (NEGATIVE); RBC, URINE AUTO RFX 5 /HPF (0-3); SQUAM EPITHELIAL CELL UR AURFX 0 /HPF (0-6); WBC, URINE AUTO RFX 1 /HPF (0-3)
[2024-12-18 01:30] VITALS: O2SAT 92
[2024-12-18] MEDS: methylPREDNISolone 125MG 2ML VIAL IV SCH (05:43)
[2024-12-18 06:35] LABS: HEMATOCRIT 44.5 % (42.0-52.0); HEMOGLOBIN 14.8 g/dl (13.5-17.5); MEAN CORPUSCULAR HEMOGLOBIN 31.8 pg (27.0-33.0); MEAN CORPUSCULAR HGB CONC 33.3 g/dl (32.0-36.5); MEAN CORPUSCULAR VOLUME 95.7 fl (80.0-96.0); PLATELET COUNT, AUTOMATED 190 10^3/uL (150-450); RED BLOOD COUNT 4.65 10^6/uL (4.30-6.10); WHITE BLOOD COUNT 5.5 10^3/uL (4.0-10.0)
[2024-12-18 07:08] LABS: ALBUMIN 2.8 G/DL (3.2-5.2); ALKALINE PHOSPHATASE 98 U/L (40-129); ALT/SGPT 25 U/L (7.0-40); AST/SGOT 22 U/L (<34); BILIRUBIN,TOTAL 0.5 MG/DL (0.3-1.2); BLOOD UREA NITROGEN 15 MG/DL (9-23); CALCIUM LEVEL 8.6 MG/DL (8.3-10.6); CARBON DIOXIDE LEVEL > 40.0 MMOL/L (20-31); CHLORIDE LEVEL 97 MMOL/L (98-107); CREATININE FOR GFR 0.72 MG/DL (0.70-1.30); GLOMERULAR FILTRATION RATE > 90.0 (>49); GLUCOSE, FASTING 154 MG/DL (74-106); POTASSIUM SERUM 4.3 MMOL/L (3.5-5.1); SODIUM LEVEL 141 MMOL/L (136-145); TOTAL PROTEIN 6.3 G/DL (5.7-8.2)
[2024-12-18] MEDS: FORMOTEROL FUMARATE 20 MCG/2 ML INHALATION SOLUTION INH SCH (07:56)
[2024-12-18] MEDS: GLYCOPYRROLATE INJ 0.2 MG/ML 2 ML VIAL NEB SCH (07:56)
[2024-12-18] MEDS: BUDESONIDE 0.5 MG/2 ML INHALATION SUSPENSION NEB SCH (07:57)
[2024-12-18 08:06] LABS: ERYTHROCYTE SEDIMENTATION RATE 103 mm/hr (0-20)
[2024-12-18 08:20] LABS: C REACTIVE PROTEIN QUANTITATIV 16.35 MG/DL (<1.0)
[2024-12-18] MEDS: PANTOPRAZOLE 40MG VIAL IV SCH (08:54)
[2024-12-18] MEDS: ASPIRIN 81MG CHEW TABLET PO SCH (08:54)
[2024-12-18] MEDS: VITAMIN D 1,000 INTERNATIONAL UNITS TABLET PO SCH (08:54)
[2024-12-18] MEDS: DOCUSATE SODIUM 100MG CAPSULE PO SCH (08:54)
[2024-12-18] MEDS: NICOTINE 14 MG/24 HR TRANSDERMAL TD SCH (08:54)
[2024-12-18] MEDS: TAMSULOSIN 0.4 MG CAP PO SCH (08:54)
[2024-12-18] MEDS: FUROSEMIDE 40 MG TAB PO SCH (08:54)
[2024-12-18] MEDS: HEPARIN SOD 5000UNITS/ML 1ML VIAL/SYRINGE SC SCH (08:56)
[2024-12-18 14:05] VITALS: BP 116/68; TEMP 97.7; O2SAT 91
[2024-12-18 14:12] LABS: INR 0.95
[2024-12-18 16:00] VITALS: BP 110/52; TEMP 97.9; O2SAT 89
[2024-12-18] MEDS: RIVAROXABAN 10MG TAB PO SCH (17:06)
[2024-12-18 21:00] VITALS: O2SAT 91
[2024-12-18 21:17] VITALS: BP 150/77; TEMP 98.2; O2SAT 91
[2024-12-18] MEDS: METOPROLOL SUCC. 25MG *XL* TAB PO SCH (21:25)
[2024-12-18] MEDS: ATORVASTATIN 20 MG TAB PO SCH (21:25)
[2024-12-18] MEDS: AZITHROMYCIN INJ 500 MG, VIAL MATE ADAPTER 1 EACH in D5W 250 ML IV SCH (21:26)
[2024-12-18] MEDS: cefTRIAXone SOD 1 GM in DEXTROSE 5% (D5W) ADV/MINI-BAG 50 ML IV SCH (22:34)
[2024-12-19 04:00] VITALS: TEMP 97.7; O2SAT 92
[2024-12-19 07:58] VITALS: O2SAT 92
[2024-12-19 08:04] LABS: HEMATOCRIT 42.4 % (42.0-52.0); LYMPH # 0.4 10^3/uL (1.5-5.0); LYMPH % 6.3 % (24.0-44.0); MEAN CORPUSCULAR HEMOGLOBIN 31.4 pg (27.0-33.0); MEAN CORPUSCULAR VOLUME 95.1 fl (80.0-96.0); MONO # 0.4 10^3/uL (0.0-0.8); MONO % 6.2 % (2.0-8.0); NEUTROPHILS # 5.5 10^3/uL (1.5-8.5); PLATELET COUNT, AUTOMATED 204 10^3/uL (150-450); RED BLOOD COUNT 4.46 10^6/uL (4.30-6.10); WHITE BLOOD COUNT 6.3 10^3/uL (4.0-10.0)
[2024-12-19 08:37] LABS: BLOOD UREA NITROGEN 18 MG/DL (9-23); CALCIUM LEVEL 9.2 MG/DL (8.3-10.6); CARBON DIOXIDE LEVEL > 40.0 MMOL/L (20-31); CHLORIDE LEVEL 95 MMOL/L (98-107); CREATININE FOR GFR 0.62 MG/DL (0.70-1.30); GLOMERULAR FILTRATION RATE > 90.0 (>49); GLUCOSE, FASTING 159 MG/DL (74-106); POTASSIUM SERUM 3.9 MMOL/L (3.5-5.1); SODIUM LEVEL 139 MMOL/L (136-145)
[2024-12-19 12:00] VITALS: BP 118/70; TEMP 98.2; O2SAT 93
[2024-12-19 20:15] VITALS: BP 111/70; TEMP 98.1; O2SAT 98
[2024-12-19 21:10] VITALS: BP 111/70
[2024-12-19] MEDS: AZITHROMYCIN 250MG TABLET PO SCH (21:10)
[2024-12-19] MEDS: ACETAMINOPHEN 325 MG TAB PO PRN (21:12)
[2024-12-20] VITALS (23 sets, daily range): BP systolic 127–151; BP diastolic 60–82; TEMP 98–98.7; O2SAT 79–97
[2024-12-20] MEDS: IPRATROPIUM 0.5MG/ALBUTEROL 2.5MG INH SOL UD 3ML NEB ONE (04:50)
[2024-12-20] MEDS ORDERED: IPRATROPIUM 0.5MG/ALBUTEROL 2.5MG INH SOL UD 3ML NEB PRN (05:05)
[2024-12-20 05:26] LABS: ABG pH (ARTERIAL) 7.324 UNITS (7.350-7.450)
[2024-12-20 05:27] LABS: ABG BASE EXCESS 11.8 (-2.0-2.0); ABG HCO3 42.1 MMOL/L (22.0-26.0); ABG PARTIAL PRESSURE CO2 82.8 mmHg (35.0-45.0); ABG PARTIAL PRESSURE O2 91.4 mmHg (75.0-100.0); ABG TOTAL CO2 44.6 MMOL/L (23.0-31.0)
[2024-12-20 05:28] LABS: ABG O2 SATURATION 96.4 % (95.0-99.0); ABG STANDARD HCO3 35.6 MMOL/L. (22.0-26.0)
[2024-12-20] MEDS: CEFEPIME HCL 2 GM in DEXTROSE 5% (D5W) ADV/MINI-BAG 50 ML IV SCH (08:52)
[2024-12-20 09:31] LABS: ABG BASE EXCESS 11.9 (-2.0-2.0); ABG O2 SATURATION 91.6 % (95.0-99.0); ABG PARTIAL PRESSURE O2 62.6 mmHg (75.0-100.0); ABG STANDARD HCO3 35.5 MMOL/L. (22.0-26.0); ABG TOTAL CO2 42.1 MMOL/L (23.0-31.0); ABG pH (ARTERIAL) 7.393 UNITS (7.350-7.450)
[2024-12-20 09:34] LABS: ABG PARTIAL PRESSURE CO2 67.2 mmHg (35.0-45.0)
[2024-12-20] MEDS: methylPREDNISolone 40MG 1ML VIAL IV SCH (13:36)
[2024-12-20 18:08] LABS: ABG BASE EXCESS 12.4 (-2.0-2.0); ABG STANDARD HCO3 36.1 MMOL/L. (22.0-26.0)
[2024-12-20 18:10] LABS: ABG HCO3 39.8 MMOL/L (22.0-26.0); ABG O2 SATURATION 94.2 % (95.0-99.0); ABG PARTIAL PRESSURE O2 71.1 mmHg (75.0-100.0); ABG TOTAL CO2 41.7 MMOL/L (23.0-31.0); ABG pH (ARTERIAL) 7.423 UNITS (7.350-7.450)
[2024-12-20 18:11] LABS: ABG PARTIAL PRESSURE CO2 62.3 mmHg (35.0-45.0)
[2024-12-20] MEDS: guaiFENesin ER TABLET 600 MG TAB PO SCH (20:56)
[2024-12-20] MEDS: ENOXAPARIN 40MG/0.4ML SYRINGE (J1650 PER 10MG) SC SCH (20:56)
[2024-12-21] VITALS (28 sets, daily range): BP systolic 120–144; BP diastolic 59–84; TEMP 97.1–98.8; O2SAT 85–97
[2024-12-21 05:56] LABS: BASO % 0.1 % (0.0-1.0); EOS % 0.1 % (0.0-3.0); HEMATOCRIT 44.9 % (42.0-52.0); HEMOGLOBIN 14.4 g/dl (13.5-17.5); LYMPH # 1.1 10^3/uL (1.5-5.0); LYMPH % 12.2 % (24.0-44.0); MEAN CORPUSCULAR HEMOGLOBIN 31.2 pg (27.0-33.0); MEAN CORPUSCULAR HGB CONC 32.1 g/dl (32.0-36.5); MEAN CORPUSCULAR VOLUME 97.4 fl (80.0-96.0); MONO % 11.7 % (2.0-8.0); NEUTROPHILS # 6.5 10^3/uL (1.5-8.5); PLATELET COUNT, AUTOMATED 210 10^3/uL (150-450); RED BLOOD COUNT 4.61 10^6/uL (4.30-6.10); WHITE BLOOD COUNT 8.6 10^3/uL (4.0-10.0)
[2024-12-21 06:21] LABS: BLOOD UREA NITROGEN 16 MG/DL (9-23); CARBON DIOXIDE LEVEL > 40.0 MMOL/L (20-31); CHLORIDE LEVEL 97 MMOL/L (98-107); CREATININE FOR GFR 0.63 MG/DL (0.70-1.30); GLOMERULAR FILTRATION RATE > 90.0 (>49); GLUCOSE, FASTING 120 MG/DL (74-106); POTASSIUM SERUM 4.2 MMOL/L (3.5-5.1); SODIUM LEVEL 143 MMOL/L (136-145)
[2024-12-21] MEDS: NS 500 ML IV ONE (09:59)
[2024-12-21 12:50] LABS: MAGNESIUM LEVEL 2.2 MG/DL (1.8-2.4)
[2024-12-21] MEDS: methylPREDNISolone 40MG 1ML VIAL IV SCH (16:39)
[2024-12-21] MEDS: METOPROLOL SUCC. 50MG *XL* TAB PO SCH (20:43)
[2024-12-22] VITALS (14 sets, daily range): BP systolic 138–146; BP diastolic 70–74; TEMP 97–97.6; O2SAT 87–94
[2024-12-22] MEDS: VANICREAM MOISTURIZING SKIN CREAM 113GM TUBE TOP PRN (00:30)
[2024-12-22 06:13] LABS: BASO % 0.3 % (0.0-1.0); EOS # 0.1 10^3/uL (0.0-0.5); EOS % 1.6 % (0.0-3.0); HEMATOCRIT 46.7 % (42.0-52.0); LYMPH # 1.6 10^3/uL (1.5-5.0); LYMPH % 21.6 % (24.0-44.0); MEAN CORPUSCULAR HEMOGLOBIN 31.5 pg (27.0-33.0); MEAN CORPUSCULAR HGB CONC 32.1 g/dl (32.0-36.5); MEAN CORPUSCULAR VOLUME 98.1 fl (80.0-96.0); MONO # 0.8 10^3/uL (0.0-0.8); MONO % 11.2 % (2.0-8.0); NEUTROPHILS # 4.8 10^3/uL (1.5-8.5); NEUTROPHILS % 64.1 % (36.0-66.0); PLATELET COUNT, AUTOMATED 217 10^3/uL (150-450); RED BLOOD COUNT 4.76 10^6/uL (4.30-6.10); WHITE BLOOD COUNT 7.5 10^3/uL (4.0-10.0)
[2024-12-22 06:38] LABS: BLOOD UREA NITROGEN 16 MG/DL (9-23); CALCIUM LEVEL 8.9 MG/DL (8.3-10.6); CARBON DIOXIDE LEVEL > 40.0 MMOL/L (20-31); CHLORIDE LEVEL 94 MMOL/L (98-107); GLOMERULAR FILTRATION RATE > 90.0 (>49); GLUCOSE, FASTING 71 MG/DL (74-106); POTASSIUM SERUM 3.6 MMOL/L (3.5-5.1); SODIUM LEVEL 142 MMOL/L (136-145)
[2024-12-22] MEDS ORDERED: MUCI1TAB16 PO (11:16)
[2024-12-22] MEDS ORDERED: PRED10TA2 PO (11:16)
[2024-12-22] MEDS ORDERED: LEVO1TAB40 PO (11:16)
[2024-12-22] MEDS ORDERED: METO1TAB7 PO (11:16)
[2024-12-22] MEDS ORDERED: NICO7DIS24 TD (11:17)
[2024-12-22] MEDS ORDERED: IPRA0.00 INH (11:17)
[2024-12-22] MEDS ORDERED: PRED20TA PO (11:17)
[2024-12-22 15:48] LABS: URINE STREP PNEUMONIAE ANTIGEN NOT DETECTED (NOT DETECT)
== END 2024-12-22 12:27 | disposition home health service (06) | DRG 193 ==
LOC: M ED 20:36 → M ED INP 12-18 00:18 → M MS5PR 12-18 14:05 → M PCU 12-20 10:09
PROVIDERS: ADMIT Student in an Organized Health Care Education/Training Program; ATTEND Internal Medicine
PROC: B246ZZZ Ultrasonography of Right and Left Heart (ICD-10-PCS; principal; 2024-12-20)
DX: J18.9 Pneumonia, unspecified organism (principal); J96.21 Acute and chronic respiratory failure with hypoxia; J44.1 Chronic obstructive pulmonary disease with (acute) exacerbation; I50.32 Chronic diastolic (congestive) heart failure; J90 Pleural effusion, not elsewhere classified; J44.0 Chronic obstructive pulmonary disease with (acute) lower respiratory infection; I25.10 Atherosclerotic heart disease of native coronary artery without angina pectoris; I11.0 Hypertensive heart disease with heart failure; F17.210 Nicotine dependence, cigarettes, uncomplicated; E78.5 Hyperlipidemia, unspecified; G47.33 Obstructive sleep apnea (adult) (pediatric); N40.1 Benign prostatic hyperplasia with lower urinary tract symptoms; R91.8 Other nonspecific abnormal finding of lung field; Z99.81 Dependence on supplemental oxygen; Z85.038 Personal history of other malignant neoplasm of large intestine; Z90.49 Acquired absence of other specified parts of digestive tract; Z79.82 Long term (current) use of aspirin; Z79.52 Long term (current) use of systemic steroids; Z79.899 Other long term (current) drug therapy; Z95.5 Presence of coronary angioplasty implant and graft